=== PATIENT | female | born 1970 | race Caucasian/White ===

== ENCOUNTER 2016-12-19 13:58 | Emergency (ER) | payer OTHER ==
--- NOTE | 2016-12-19 16:05 | ED ORDER SUMMARY ---
..... Patient: MARGA VITALE OrderSheet [facility] VisitID: [id number] [address] [place] [address] 46y, F Registration Date/Time: 12/19/2016 ORDER SHEET Weight: 83.9 kg (stated) Allergies: Ambien, Lyrica, Neurontin GENERAL ORDERS: CT Abd/Pel w Cont (No) (pending) Urgent (14:35 12/19/2016 HBivens A.R.N.P.) (14:36 EHassan R.N.) CBC w Diff Urgent (14:35 12/19/2016 HBivens A.R.N.P.) (14:36 EHassan R.N.) CMP Urgent (14:35 12/19/2016 HBivens A.R.N.P.) (14:36 EHassan R.N.) UA-Culture if indicated Urgent (14:35 12/19/2016 HBivens A.R.N.P.) (14:36 EHassan R.N.) Amylase Urgent (14:35 12/19/2016 HBivens A.R.N.P.) (14:36 EHassan R.N.) Lipase Urgent (14:35 12/19/2016 HBivens A.R.N.P.) (14:36 EHassan R.N.) Serum Quantitative Urgent (14:36 12/19/2016 HBivens A.R.N.P.) (14:41 NHouse ER Tech1) MEDICATION ORDERS: Hydrocodone-APAP PO 5/325 mg (NOW, HIGH ALERT MEDICATION) (16:04 12/19/2016 HBivens A.R.N.P.) (16:10 EHassan R.N.) IV FLUIDS: IV Saline Lock (14:35 12/19/2016 HBivens A.R.N.P.) (14:44 EHassan R.N.) Toradol IV 30 mg (NOW) (14:49 12/19/2016 HBivens A.R.N.P.) (14:54 EHassan R.N.) Zofran IV 4 mg (NOW) (14:49 12/19/2016 Mona Freedman.R.N.PLorenzo) (14:55 Jose Elias Perez) ORDER SHEET NOTES: [Electronically signed by Hoda Cortez R.N. (16:36 12/19/2016)] [Electronically signed by Hoda Cortez R.N. (16:37 12/19/2016)] [Electronically signed by Rekha DuboisRLorenzoNLorenzoPLorenzo (16:57 12/19/2016)] [Electronically locked/signed by Hoda Cortez R.N. (16:36 12/19/2016)]
--- NOTE | 2016-12-19 16:05 | ED ORDER SUMMARY ---
..... Patient: MARGA VITALE OrderSheet [facility] VisitID: [id number] [address] [place] [address] 46y, F Registration Date/Time: 12/19/2016 ORDER SHEET Weight: 83.9 kg (stated) Allergies: Ambien, Lyrica, Neurontin GENERAL ORDERS: CT Abd/Pel w Cont (No) (pending) Urgent (14:35 12/19/2016 HBivens A.R.N.P.) (14:36 EHassan R.N.) CBC w Diff Urgent (14:35 12/19/2016 HBivens A.R.N.P.) (14:36 EHassan R.N.) CMP Urgent (14:35 12/19/2016 HBivens A.R.N.P.) (14:36 EHassan R.N.) UA-Culture if indicated Urgent (14:35 12/19/2016 HBivens A.R.N.P.) (14:36 EHassan R.N.) Amylase Urgent (14:35 12/19/2016 HBivens A.R.N.P.) (14:36 EHassan R.N.) Lipase Urgent (14:35 12/19/2016 HBivens A.R.N.P.) (14:36 EHassan R.N.) Serum Quantitative Urgent (14:36 12/19/2016 HBivens A.R.N.P.) (14:41 NHouse ER Tech1) MEDICATION ORDERS: Hydrocodone-APAP PO 5/325 mg (NOW, HIGH ALERT MEDICATION) (16:04 12/19/2016 HBivens A.R.N.P.) (16:10 EHassan R.N.) IV FLUIDS: IV Saline Lock (14:35 12/19/2016 HBivens A.R.N.P.) (14:44 EHassan R.N.) Toradol IV 30 mg (NOW) (14:49 12/19/2016 HBivens A.R.N.P.) (14:54 EHassan R.N.) Zofran IV 4 mg (NOW) (14:49 12/19/2016 Mona Freedman.R.N.PLorenzo) (14:55 Jose Elias Perez) ORDER SHEET NOTES: [Electronically signed by Hoda Cortez R.N. (16:36 12/19/2016)] [Electronically signed by Hoda Cortez R.N. (16:37 12/19/2016)] [Electronically signed by Rekha DuboisRLorenzoNLorenzoPLorenzo (16:57 12/19/2016)] [Electronically locked/signed by Hoda Cortez R.N. (16:36 12/19/2016)]
--- NOTE | 2016-12-19 16:05 | ED CLINICAL REPORT ---
Clinical Report - Physicians/Mid Levels [facility] [address] [place] [address] 12/19/2016 13:59 Patient: MARGA VITALE Time Seen: 14:07; initial patient contact, initial documentation, patient care assumed. Arrived- By private vehicle. Historian- patient. HISTORY OF PRESENT ILLNESS Chief Complaint: ABDOMINAL PAIN. At its maximum, severity described as severe. When seen in the E.D., severity described as severe. Modifying factors- worsened by movement. Not relieved by anything. This started yesterday and is still present. It was abrupt in onset and has been constant. It is described as "pain", sharp and stabbing and it is described as located in the left lower quadrant. The patient has had nausea. No loss of appetite, vomiting or diarrhea. No recent travel. Similar symptoms previously: None. Recent medical care: Not recently seen/assessed. REVIEW OF SYSTEMS No constipation, black stools, hematemesis, difficulty with urination or pain with urination. No urinary frequency, bloody stools, fever, chest pain or difficulty breathing. Denies current . All systems otherwise negative, except as recorded above. PAST HISTORY See nurses notes. PROBLEMS: TIA - Transient Ischemic Attack. Arrhythmia. Sleep Apnea. UTI - Urinary Tract Infection. Immunizations. Narcolepsy. Tetanus Status. Skin Avulsion. Cerebral Palsy. LNMP - Last Normal Menstrual Period. IBS. Fatigue. Tremor. Thyroid Disease. Palpitations. Fibromyalgia. --14:16 Hoda Cortez RLorenzoN. ADDITIONAL SURGERIES: Cholecystectomy. Dental Surgery. Fx right foot. Left shoulder . --14:16 Hoda Cortez RSumit. SOCIAL HISTORY Never smoker. No alcohol use or drug use. No recent travel. Is a local resident. FAMILY HISTORY Negative. ADDITIONAL NOTES The nursing notes have been reviewed with agreement regarding the chief complaint, HPI, ROS, PMH and patient medications and allergies. PHYSICAL EXAM Vital Signs: 12/19/2016 14:08 BP: 117/72. HR: 72. RR: 18. O2 saturation: 100%. Temp: 98.1 F. Pain level now: 10/10. Have been reviewed as normal and appear to be correct. Appearance: Alert. Oriented X3. No acute distress. Eyes: Pupils equal, round and reactive to light. Eyes normal inspection. Neck: Normal inspection. Neck supple. CVS: Normal heart rate and rhythm. Heart sounds normal. Pulses normal. Respiratory: No respiratory distress. Breath sounds normal. Chest nontender. Abdomen: Soft. Moderate tenderness in the left lower quadrant. No guarding, rebound tenderness or Hernandez's, obturator or psoas sign present. Bowel sounds normal. No organomegaly. No mass. Tenderness present. Back: Normal inspection. Skin: Skin warm and dry. Normal skin color. No rash. Normal skin turgor. Extremities: Extremities exhibit normal ROM. No lower extremity edema. Neuro: Oriented X 3. No motor deficit. No sensory deficit. LABS, X-RAYS, AND EKG Abdominal CT: . The study was interpreted by the radiologist and discussed with the radiologist. Interpretation time: 1555. Laboratory Tests: UA-Culture if indicated: (FLORENTIN: 12/19/2016 14:30) ( [facility] [place] 15:11) Final results Test Result Flag Units (Reference) URINE COLOR YELLOW URINE APPEARANCE CLEAR URINE GLUCOSE NEGATIVE (NEGATIVE) URINE BILIRUBIN NEGATIVE (NEGATIVE) URINE KETONE NEGATIVE (NEGATIVE) URINE SPECIFIC GRAVITY >= 1.030 (1.010-1.030) URINE PH 5.5 (5.0-8.0) URINE PROTEIN NEGATIVE (NEGATIVE) URINE UROBILINOGEN 0.2 EU/dL (0.2-1.0) URINE NITRITE NEGATIVE (NEGATIVE) URINE BLOOD NEGATIVE (NEGATIVE) URINE LEUK ESTERASE TRACE (NEGATIVE) URINE RBC NONE SEEN rbc/hpf (0-1) URINE WBC 5-10 wbc/hpf (0-1) URINE EPITHELIAL CELLS 3-5 EPI/hpf (0-5) URINE BACTERIA FEW (1+) (NONE SEEN) URINE COMMENT CULTURE INDICATED 2+ MUCUSURINE CULTURES ARE SET-UP BASED ON THE FOLLOWING CRITERIA:POSITIVE NITRITEPOSITIVE LEUKOCYTE ESTERASEGREATER THAN 10 WHITE BLOOD CELLSMODERATE (2+) OR GREATER BACTERIA CBC w Diff: (FLORENTIN: 12/19/2016 14:30) ( [facility] [place] 14:57) Final results Test Result Flag Units (Reference) WHITE BLOOD COUNT 7.5 K/uL (4.5-11.5) RED BLOOD COUNT 4.89 M/uL (4.00-5.20) HEMOGLOBIN 13.8 gm/dL (12.0-16.0) HEMATOCRIT 41.7 % (36.0-46.0) MEAN CELL VOLUME 85 fL (80-100) MEAN CORPUSCULAR HGB 28 pg (26-34) MEAN CORPUSCULAR HGB CONC 33 g/dL (31-37) RED CELL DISTRIBUTION WIDTH 14.4 % (11.6-14.8) PLATELET COUNT 238 K/uL (150-400) NEUTROPHIL % 61.3 % (50-75) LYMPH % 29.3 % (25-40) MONO % 6.1 % (3-14) EOSINOPHIL % 2.6 % (0-4) BASOPHIL % 0.7 % (0-2) Serum Quantitative: (FLORENTIN: 12/19/2016 14:30) ( [facility] [place] 12/19/2016 15:20) Final results Test Result Flag Units (Reference) BETA HCG, QUANTITATIVE 2 mIU/mL REFERENCE RANGE:Adult Males: <2 mIU/mLNon- Females: <6 mIU/mL Females:Approximate Approximate hCGGestational Age Range (mIU/mL) 0-1 week 0-501-2 weeks 40-3002-3 weeks 100-99766-6 weeks 500-67371-5 months 5,000-200,0002-3 months 10,000-100,0002nd trimester 3,000-50,0003rd trimester 1,000-50,000 CMP: (FLORENTIN: 12/19/2016 14:30) ( [facility] [place] 12/19/2016 15:07) Final results Test Result Flag Units (Reference) GLUCOSE 98 mg/dL (70-110) BUN 4 L mg/dL (7-18) CREATININE 0.8 mg/dL (0.6-1.3) Estimated GFR >60 mL/min Estimated GFR- >60 mL/min Note: Persistent reduction over 3 months in eGFR<60 mL/min/1.73 m2 defines CKD. Patients with eGFR values>=60 mL/min/1.73 m2 may also have CKD if evidence ofpersistent proteinuria. Additional information may be foundat www.kidney.org. SODIUM 139 mmol/L (136-145) POTASSIUM 3.0 L mmol/L (3.5-5.1) CHLORIDE 102 mmol/L (98-107) CARBON DIOXIDE 31 mmol/L (21-32) CALCIUM 8.8 mg/dL (8.5-10.1) TOTAL PROTEIN 7.7 g/dL (6.4-8.2) ALBUMIN 3.4 g/dL (3.3-5.0) BILIRUBIN, TOTAL 0.6 mg/dL (0.0-1.0) ALKALINE PHOSPHATASE 74 U/L (46-116) AST (SGOT) 15 U/L (15-37) ALT (SGPT) 20 U/L (12-78) LIPASE 94 U/L (73-393) AMYLASE 21 L U/L (25-115) . PROGRESS AND PROCEDURES Course of Care: 14:30 12/19/16. pt has kris for consistent tramadol rx, last rx 12/12 #112, see report for full details. Patient counseled in person regarding the patient's stable condition, test results and diagnosis. 15:59. Differential Diagnosis: I considered gastritis, peptic ulcer disease, gastroesophageal reflux disease, mesenteric lymphadenitis, colon cancer, intraabdominal abscess, hernia, urinary tract infection, ureterolithiasis, ovarian cyst, ovarian torsion, , ectopic , pelvic inflammatory disease, pelvic abscess, endometriosis and viral syndrome as a possible cause of abdominal pain in this patient. This is a partial list of diagnoses considered. Above considerations are based on history, physical exam, laboratory data and other information. Differential diagnosis was discussed with patient. Disposition: Discharged home in good and improved condition (16:05). Condition: good and stable. CLINICAL IMPRESSION Acute left lower quadrant abdominal pain of undetermined cause. INSTRUCTIONS Warnings: GENERAL WARNINGS: Return or contact your physician immediately if your condition worsens or changes unexpectedly, if not improving as expected, or if other problems arise. SPECIFICALLY, return if you develop pain in the abdomen, pelvis, back or shoulder, fever, vomiting, the inability to keep fluids down, blood in vomitus, blood in diarrhea, fainting, lightheadedness or vaginal bleeding. Prescription Medications: Zofran 4 mg: Take 1 orally every six hours as needed for nausea/vomiting. Dispense ten (10). No refills. Substitution is permissible. [place] 5 mg / 325 mg tablets: take 1 orally every 6 hours as needed for pain. Dispense five (5). No refill. Follow-up: Follow up with your doctor in about two days even if well. Call for an appointment. Summary of care provided to patient. Understanding of the discharge instructions verbalized by patient. (Electronically signed by Rekha Dubois A.R.N.P. 12/19/2016 16:57)
--- NOTE | 2016-12-19 16:05 | ED CLINICAL REPORT ---
Clinical Report - Physicians/Mid Levels [facility] [address] [place] [address] 12/19/2016 13:59 Patient: MARGA VITALE Time Seen: 14:07; initial patient contact, initial documentation, patient care assumed. Arrived- By private vehicle. Historian- patient. HISTORY OF PRESENT ILLNESS Chief Complaint: ABDOMINAL PAIN. At its maximum, severity described as severe. When seen in the E.D., severity described as severe. Modifying factors- worsened by movement. Not relieved by anything. This started yesterday and is still present. It was abrupt in onset and has been constant. It is described as "pain", sharp and stabbing and it is described as located in the left lower quadrant. The patient has had nausea. No loss of appetite, vomiting or diarrhea. No recent travel. Similar symptoms previously: None. Recent medical care: Not recently seen/assessed. REVIEW OF SYSTEMS No constipation, black stools, hematemesis, difficulty with urination or pain with urination. No urinary frequency, bloody stools, fever, chest pain or difficulty breathing. Denies current . All systems otherwise negative, except as recorded above. PAST HISTORY See nurses notes. PROBLEMS: TIA - Transient Ischemic Attack. Arrhythmia. Sleep Apnea. UTI - Urinary Tract Infection. Immunizations. Narcolepsy. Tetanus Status. Skin Avulsion. Cerebral Palsy. LNMP - Last Normal Menstrual Period. IBS. Fatigue. Tremor. Thyroid Disease. Palpitations. Fibromyalgia. --14:16 Hoda Cortez RLorenzoN. ADDITIONAL SURGERIES: Cholecystectomy. Dental Surgery. Fx right foot. Left shoulder . --14:16 Hoda Cortez RSumit. SOCIAL HISTORY Never smoker. No alcohol use or drug use. No recent travel. Is a local resident. FAMILY HISTORY Negative. ADDITIONAL NOTES The nursing notes have been reviewed with agreement regarding the chief complaint, HPI, ROS, PMH and patient medications and allergies. PHYSICAL EXAM Vital Signs: 12/19/2016 14:08 BP: 117/72. HR: 72. RR: 18. O2 saturation: 100%. Temp: 98.1 F. Pain level now: 10/10. Have been reviewed as normal and appear to be correct. Appearance: Alert. Oriented X3. No acute distress. Eyes: Pupils equal, round and reactive to light. Eyes normal inspection. Neck: Normal inspection. Neck supple. CVS: Normal heart rate and rhythm. Heart sounds normal. Pulses normal. Respiratory: No respiratory distress. Breath sounds normal. Chest nontender. Abdomen: Soft. Moderate tenderness in the left lower quadrant. No guarding, rebound tenderness or Hernandez's, obturator or psoas sign present. Bowel sounds normal. No organomegaly. No mass. Tenderness present. Back: Normal inspection. Skin: Skin warm and dry. Normal skin color. No rash. Normal skin turgor. Extremities: Extremities exhibit normal ROM. No lower extremity edema. Neuro: Oriented X 3. No motor deficit. No sensory deficit. LABS, X-RAYS, AND EKG Abdominal CT: . The study was interpreted by the radiologist and discussed with the radiologist. Interpretation time: 1555. Laboratory Tests: UA-Culture if indicated: (FLORENTIN: 12/19/2016 14:30) ( [facility] [place] 12/19/2016 15:11) Final results Test Result Flag Units (Reference) URINE COLOR YELLOW URINE APPEARANCE CLEAR URINE GLUCOSE NEGATIVE (NEGATIVE) URINE BILIRUBIN NEGATIVE (NEGATIVE) URINE KETONE NEGATIVE (NEGATIVE) URINE SPECIFIC GRAVITY >= 1.030 (1.010-1.030) URINE PH 5.5 (5.0-8.0) URINE PROTEIN NEGATIVE (NEGATIVE) URINE UROBILINOGEN 0.2 EU/dL (0.2-1.0) URINE NITRITE NEGATIVE (NEGATIVE) URINE BLOOD NEGATIVE (NEGATIVE) URINE LEUK ESTERASE TRACE (NEGATIVE) URINE RBC NONE SEEN rbc/hpf (0-1) URINE WBC 5-10 wbc/hpf (0-1) URINE EPITHELIAL CELLS 3-5 EPI/hpf (0-5) URINE BACTERIA FEW (1+) (NONE SEEN) URINE COMMENT CULTURE INDICATED 2+ MUCUSURINE CULTURES ARE SET-UP BASED ON THE FOLLOWING CRITERIA:POSITIVE NITRITEPOSITIVE LEUKOCYTE ESTERASEGREATER THAN 10 WHITE BLOOD CELLSMODERATE (2+) OR GREATER BACTERIA CBC w Diff: (FLORENTIN: 12/19/2016 14:30) ( [facility] [place] [place] 14:57) Final results Test Result Flag Units (Reference) WHITE BLOOD COUNT 7.5 K/uL (4.5-11.5) RED BLOOD COUNT 4.89 M/uL (4.00-5.20) HEMOGLOBIN 13.8 gm/dL (12.0-16.0) HEMATOCRIT 41.7 % (36.0-46.0) MEAN CELL VOLUME 85 fL (80-100) MEAN CORPUSCULAR HGB 28 pg (26-34) MEAN CORPUSCULAR HGB CONC 33 g/dL (31-37) RED CELL DISTRIBUTION WIDTH 14.4 % (11.6-14.8) PLATELET COUNT 238 K/uL (150-400) NEUTROPHIL % 61.3 % (50-75) LYMPH % 29.3 % (25-40) MONO % 6.1 % (3-14) EOSINOPHIL % 2.6 % (0-4) BASOPHIL % 0.7 % (0-2) Serum Quantitative: (FLORENTIN: 12/19/2016 14:30) ( [facility] [place] 12/19/2016 15:20) Final results Test Result Flag Units (Reference) BETA HCG, QUANTITATIVE 2 mIU/mL REFERENCE RANGE:Adult Males: <2 mIU/mLNon- Females: <6 mIU/mL Females:Approximate Approximate hCGGestational Age Range (mIU/mL) 0-1 week 0-501-2 weeks 40-3002-3 weeks 100-95160-5 weeks 500-42576-9 months 5,000-200,0002-3 months 10,000-100,0002nd trimester 3,000-50,0003rd trimester 1,000-50,000 CMP: (FLORENTIN: 12/19/2016 14:30) ( [facility] [place] 12/19/2016 15:07) Final results Test Result Flag Units (Reference) GLUCOSE 98 mg/dL (70-110) BUN 4 L mg/dL (7-18) CREATININE 0.8 mg/dL (0.6-1.3) Estimated GFR >60 mL/min Estimated GFR- >60 mL/min Note: Persistent reduction over 3 months in eGFR<60 mL/min/1.73 m2 defines CKD. Patients with eGFR values>=60 mL/min/1.73 m2 may also have CKD if evidence ofpersistent proteinuria. Additional information may be foundat www.kidney.org. SODIUM 139 mmol/L (136-145) POTASSIUM 3.0 L mmol/L (3.5-5.1) CHLORIDE 102 mmol/L (98-107) CARBON DIOXIDE 31 mmol/L (21-32) CALCIUM 8.8 mg/dL (8.5-10.1) TOTAL PROTEIN 7.7 g/dL (6.4-8.2) ALBUMIN 3.4 g/dL (3.3-5.0) BILIRUBIN, TOTAL 0.6 mg/dL (0.0-1.0) ALKALINE PHOSPHATASE 74 U/L (46-116) AST (SGOT) 15 U/L (15-37) ALT (SGPT) 20 U/L (12-78) LIPASE 94 U/L (73-393) AMYLASE 21 L U/L (25-115) . PROGRESS AND PROCEDURES Course of Care: 14:30 12/19/16. pt has kris for consistent tramadol rx, last rx 12/12 #112, see report for full details. Patient counseled in person regarding the patient's stable condition, test results and diagnosis. 15:59. Differential Diagnosis: I considered gastritis, peptic ulcer disease, gastroesophageal reflux disease, mesenteric lymphadenitis, colon cancer, intraabdominal abscess, hernia, urinary tract infection, ureterolithiasis, ovarian cyst, ovarian torsion, , ectopic , pelvic inflammatory disease, pelvic abscess, endometriosis and viral syndrome as a possible cause of abdominal pain in this patient. This is a partial list of diagnoses considered. Above considerations are based on history, physical exam, laboratory data and other information. Differential diagnosis was discussed with patient. Disposition: Discharged home in good and improved condition (16:05). Condition: good and stable. CLINICAL IMPRESSION Acute left lower quadrant abdominal pain of undetermined cause. INSTRUCTIONS Warnings: GENERAL WARNINGS: Return or contact your physician immediately if your condition worsens or changes unexpectedly, if not improving as expected, or if other problems arise. SPECIFICALLY, return if you develop pain in the abdomen, pelvis, back or shoulder, fever, vomiting, the inability to keep fluids down, blood in vomitus, blood in diarrhea, fainting, lightheadedness or vaginal bleeding. Prescription Medications: Zofran 4 mg: Take 1 orally every six hours as needed for nausea/vomiting. Dispense ten (10). No refills. Substitution is permissible. [place] 5 mg / 325 mg tablets: take 1 orally every 6 hours as needed for pain. Dispense five (5). No refill. Follow-up: Follow up with your doctor in about two days even if well. Call for an appointment. Summary of care provided to patient. Understanding of the discharge instructions verbalized by patient. (Electronically signed by Rekha Dubois A.R.N.P. 12/19/2016 16:57)
--- NOTE | 2016-12-19 16:05 | ED NURSING NOTES ---
Clinical Report - Nurses [facility] [address] [place] [address] 12/19/2016 13:59 Patient: MARGA VITALE TRIAGE Triage time 1409 PM. Acuity: LEVEL 3. Chief Complaint: ABDOMINAL PAIN and NAUSEA. Alert. No acute distress. SEPSIS SCREEN: Sepsis Screen. Negative (no infection suspected/documented). RAHEEL COMA SCORE: Raheel Coma Scale: 15- eyes open spontaneously (4); best verbal response- oriented x 4 (5); best motor response- obeys commands (6). --14:19 Hoda Cortez R.N. 14:08 12/19/16. BP: 117/72 (regular adult cuff) taken on the left arm, via an automated monitor, while lying. HR: 72. RR: 18. O2 saturation: 100% on room air. Temp: 98.1 F. Pain level now: 08/14. --14:19 Hoda Cortez R.N. Weight: 83.9 kg stated. Height/Length: 68 inches Per Patient. BMI: 28.1. --14:08 Hoda Cortez R.N. Medications Levothyroxine Sodium Oral 100 mcg, daily. TraZODone HCl Oral 100 mg, at bedtime. Vitamin B 12 Oral. Vitamins. --14:11 Hoda Cortez R.N. Effient Oral. --14:11 Hoda Cortez R.N. Oxybutynin Chloride ER Oral. --14:11 Hoda Cortez R.N. Allergies Ambien. (sleep walking) --14:11 Hoda Cortez R.N. Lyrica. --14:11 Hoda Cortez R.N. Neurontin. --14:13 Hoda Cortez R.N. Medication/allergy information source: the patient. --14:19 Hoda Cortez R.N. History Historian: patient. Primary physician (Dr. James). ( Pt states having severe LLQ pain since yesterday morning with nauseous/ unsure of having fevers, does admit to chills and body aches/no trouble urinating/vomiting/diarrhea). This started yesterday. She has had nausea and abdominal pain. No vomiting, diarrhea or fever. Last oral intake by patient was (1 hour ago some pop). 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 PAST MEDICAL HX: The patient is post-menopausal. SOCIAL HX: Never smoker. No alcohol use or drug use. No recent travel. No infectious disease exposure. No known contact with a sick individual. ABUSE ASSESSMENT: No report of abuse. SELF HARM ASSESSMENT: A self harm assessment was performed. The patient answered "no" to the question "Do you have thoughts of harming or killing yourself?" and "Have you recently had thoughts about harming or killing others?". FALL RISK ASSESSMENT: Fall risk assessment completed. No fall risk identified. NUTRITIONAL RISK ASSESSMENT: The nutritional risk assessment revealed no deficiencies. FUNCTIONAL ASSESSMENT: Functional assessment: no impairments noted. LEARNING NEEDS ASSESSMENT: The learning needs assessment revealed no barriers. SKIN INTEGRITY ASSESSMENT: Skin integrity risk assessment completed. No skin integrity risk identified. --14:19 Hoda Cortez R.N. ( Pt does admit to frequent UTI's "feels different" foul odor, and frequency). --14:21 Hoda Cortez R.N. PROBLEMS: TIA - Transient Ischemic Attack. Arrhythmia. Sleep Apnea. UTI - Urinary Tract Infection. Immunizations. Narcolepsy. Tetanus Status. Skin Avulsion. Cerebral Palsy. LNMP - Last Normal Menstrual Period. IBS. Fatigue. Tremor. Thyroid Disease. Palpitations. Fibromyalgia. --14:16 Hoda Cortez R.N. ADDITIONAL SURGERIES: Cholecystectomy. Dental Surgery. Fx right foot. Left shoulder . --14:16 Hoda Cortez R.N. Interventions ID band on patient. --14:19 Hoda Cortez R.N. PHYSICAL ASSESSMENT Ambulatory to room. GENERAL / NEURO / PSYCH: Alert. Oriented X 4. Appears in pain. HEENT: Mucous membranes are pink. RESPIRATORY: Respirations not labored. Breath sounds within normal limits. CVS: Capillary refill less than 2 seconds. GI / : Abdomen soft. Abdominal tenderness in the left lower quadrant and lower abdomen. No diarrhea. No blood in the stool. SKIN: Skin is warm and dry. --14:20 Hoda Cortez R.N. NURSING PROGRESS NOTES The initial plan of care for this patient has been created This plan of care was discussed with the patient. Reassurance given. Urine collected. Two patient identifiers checked. Call light placed in reach. Side rails up x 1. Bed placed in lowest position. Brakes of bed on. --14:23 Hoda Cortez R.N. 14:44 12/19/2016 Site #1 started via IV in the right upper arm with an 20g angiocath; one attempt. Blood drawn: rainbow set. Labeled in the presence of the patient and sent to the lab. Saline lock flushed. --14:44 Hoda Cortez R.N. 14:53 12/19/2016 Zofran (Ondansetron HCl) IVP 4 mg given over 2 minute(s) via site #1. Allergies verified and confirmed 5 rights. IV patency established. IV site checked: no pain, redness, or swelling. IV flushed thoroughly pre- and post-medication administration. IVP given by RN. --14:55 Hoda Cortez R.N. 14:54 12/19/2016 Toradol IVP 30 mg given over 30 second(s) via site #1. Allergies verified and confirmed 5 rights. IV patency established. IV site checked: no pain, redness, or swelling. IV flushed thoroughly pre- and post-medication administration. IVP given by RN. --14:54 Hoda Cortez R.N. 15:30 12/19/16. BP: 116/62. HR: 73. RR: 18. O2 saturation: 97% on room air. Pain level now: 07/15. --15:32 Hoda Cortez R.N. Reassurance given. The patient has had no adverse reaction. Overall patient status is the same- she states feels the same. ( Pt awaiting CT scan, still c/o of pain 07/15, n/v resolved). GI / : The patient reports abdominal pain. Denies nausea. Call light placed in reach. Side rails up x 1. Bed placed in lowest position. Brakes of bed on. --15:32 Hoda Cortez R.N. 16:10 12/19/2016 Hydrocodone-APAP (Hydrocodone-Acetaminophen) PO 5/325 mg Tablets 1 tab given. Allergies verified, confirmed 5 rights and sedative warning given to the patient. --16:10 Hoda Cortez R.N. 16:31 12/19/2016 Hydrocodone-APAP PO Response: no adverse reaction pain is improving. --16:36 Hoda Cortez R.N. DISPOSITION / DISCHARGE 16:17 12/19/2016 Site #1 removed upon discharge. Catheter intact. Manual pressure and bandaid applied. --16:17 Hoda Cortez R.N. Condition at departure: stable. The goals identified in the patient's plan of care were met. No learning barriers present. Discharge instructions provided and reviewed with the patient. Reviewed warnings (s/s of worsening). Reviewed medication(s) side effects, precautions, dosing and course information. Prescription(s) given to the patient. Reviewed low fat diet, high fiber diet and need for increased fluid intake. Activity restrictions (rest) reviewed. Patient verbalized understanding. Written instructions provided in Salvadorean. The patient was discharged by the nurse practitioner. She was discharged home and accompanied by spouse. She left the Emergency Department ambulatory and via private vehicle. Spouse driving. FALL RISK ASSESSMENT: Fall risk assessment completed. No fall risk identified. --16:21 Hoda Cortez R.N. 16:12 12/19/16. BP: 106/56 (regular adult cuff) taken on the left arm, via an automated monitor, while lying. HR: 68. RR: 12. O2 saturation: 98%. Temp: 98.2 F (oral). Pain level now: 06/14. --16:21 Hoda Cortez R.N. Departure time: 1632 PM. --16:36 Hoda Cortez R.N. Locked/Released at 12/19/2016 16:37 by Hoda Cortez R.N.
--- NOTE | 2016-12-19 16:57 | DIAGNOSTIC IMAGING REPORT ---
PROCEDURE: CT ABD/PELVIS WITH CONTRAST CLINICAL INDICATION: Left lower quadrant pain x 2 days, initial encounter TECHNIQUE: 95 ml of Isovue 300 were injected intravenously and axial images were obtained of the entire abdomen and pelvis with sagittal and coronal reformations. COMPARISON: None. FINDINGS: ABDOMEN: Mild left basilar scarring. Normal heart size. Cholecystectomy. Liver, pancreas, spleen, adrenal glands and the kidneys are normal. Mild atherosclerosis of the aorta. Nonspecific bowel gas pattern. PELVIS: 1.5 cm atrophic left ovary with infiltration of the fat between the ovary and sigmoid colon, but the ovary and sigmoid colon are unremarkable. This may represent epiploic appendagitis. Left ovarian torsion changes are less likely. No evidence of free air or free fluid. Normal appendix. Normal bladder and uterus. Mild levoscoliosis. IMPRESSION: 1. Mild left lower quadrant inflammatory changes between the atrophic left ovary and sigmoid colon suggestive of epiploic appendagitis. Ovarian torsion is less likely. 2. Cholecystectomy 3. Results discussed with Rekha Dubois All CT scans at this facility use dose modulation, iterative reconstruction, and/or weight-based dosing when appropriate to reduce radiation dose to as low as reasonably achievable.
--- NOTE | 2016-12-19 16:58 | ED MAR SUMMARY ---
..... Medication Administration Record [facility] [address] [place] [address] Patient: MARGA VITALE Visit ID: [id number] 46y, F Weight: 83.9 kg Height/Length: 68 in BMI: 28.1 ALLERGIES: Neurontin, Lyrica, Ambien Given 14:53 12/19/2016 Hoda Cortez R.N. Medication Administered: ZOFRAN [IVP] (ONDANSETRON HCL), Dose: 4 mg IVP over 2 minute(s), Site: #1 right upper arm. Medication Ordered: Zofran IV 4 mg (NOW). Given 14:54 12/19/2016 Hoda Cortez R.N. Medication Administered: TORADOL [IVP], Dose: 30 mg IVP over 30 second(s), Site: #1 right upper arm. Medication Ordered: Toradol IV 30 mg (NOW). Given 16:10 12/19/2016 Hoda Cortez R.N. Medication Administered: HYDROCODONE-APAP [PO] (HYDROCODONE-ACETAMINOPHEN), Dose: 1 tab 5/325 mg Tablets PO. Medication Ordered: Hydrocodone-APAP PO 5/325 mg (NOW, HIGH ALERT MEDICATION).
--- NOTE | 2016-12-19 16:58 | ED MED RECONCILIATION SUMMARY ---
Patient: MARGA VITALE Medication Reconciliation Report [facility] VisitID: [id number] [address] [place] [address] 46y, F Registration Date/Time: 12/19/2016 Weight: 83.9 kg Height/Length: 68 in. BMI: 28.1 ALLERGIES: Ambien, Lyrica, Neurontin The patient's Home Medications are listed below: THE FOLLOWING MEDICATIONS NEED TO BE RECONCILED: Effient Oral Levothyroxine Sodium Oral 100 mcg, daily Oxybutynin Chloride ER Oral TraZODone HCl Oral 100 mg, at bedtime Vitamin B 12 Oral Vitamins The source(s) of the original Home Medication information: patient The following Medications were given to the patient in the Emergency Department: Toradol [IVP] IVP 30 mg, administered: 12/19/2016 2:54:00 PM Zofran [IVP] IVP 4 mg, administered: 12/19/2016 2:53:00 PM Hydrocodone-APAP [PO] PO 1 tab, administered: 12/19/2016 4:10:00 PM The following Medications were prescribed to the patient: Zofran 4 mg: Take 1 orally every six hours as needed for nausea/vomiting. Dispense ten (10). No refills. Substitution is permissible. -- Rekha Dubois, A.R.N.P. [place] 5 mg / 325 mg tablets: take 1 orally every 6 hours as needed for pain. Dispense five (5). No refill. -- Rekha Dubois, A.R.N.P.
--- NOTE | 2016-12-19 16:58 | ED MAR SUMMARY ---
..... Medication Administration Record [facility] [address] [place] [address] Patient: MARGA VITALE Visit ID: [id number] 46y, F Weight: 83.9 kg Height/Length: 68 in BMI: 28.1 ALLERGIES: Neurontin, Lyrica, Ambien Given 14:53 12/19/2016 Hoda Cortez R.N. Medication Administered: ZOFRAN [IVP] (ONDANSETRON HCL), Dose: 4 mg IVP over 2 minute(s), Site: #1 right upper arm. Medication Ordered: Zofran IV 4 mg (NOW). Given 14:54 12/19/2016 Hoda Cortez R.N. Medication Administered: TORADOL [IVP], Dose: 30 mg IVP over 30 second(s), Site: #1 right upper arm. Medication Ordered: Toradol IV 30 mg (NOW). Given 16:10 12/19/2016 Hoda Cortez R.N. Medication Administered: HYDROCODONE-APAP [PO] (HYDROCODONE-ACETAMINOPHEN), Dose: 1 tab 5/325 mg Tablets PO. Medication Ordered: Hydrocodone-APAP PO 5/325 mg (NOW, HIGH ALERT MEDICATION).
--- NOTE | 2016-12-19 16:58 | ED DISCHARGE INSTRUCTIONS ---
Patient: MARGA VITALE General Instructions [facility] VisitID: [id number] [address] [place] [address] 46y, F Registration Date/Time: 12/19/2016 Acute left lower quadrant abdominal pain of undetermined cause. INSTRUCTIONS Warnings: GENERAL WARNINGS: Return or contact your physician immediately if your condition worsens or changes unexpectedly, if not improving as expected, or if other problems arise. SPECIFICALLY, return if you develop pain in the abdomen, pelvis, back or shoulder, fever, vomiting, the inability to keep fluids down, blood in vomitus, blood in diarrhea, fainting, lightheadedness or vaginal bleeding. Prescription Medications: Zofran 4 mg: Take 1 orally every six hours as needed for nausea/vomiting. Dispense ten (10). No refills. Substitution is permissible. [place] 5 mg / 325 mg tablets: take 1 orally every 6 hours as needed for pain. Dispense five (5). No refill. Follow-up: Follow up with your doctor in about two days even if well. Call for an appointment. Summary of care provided to patient. Understanding of the discharge instructions verbalized by patient. ADDITIONAL INFORMATION Abdominal Pain, Unknown Cause (Female) The exact cause of your abdominal (stomach) pain is not certain. This does not mean that this is something to worry about, or the right tests were not done. Everyone likes to know the exact cause of the problem, but sometimes with abdominal pain, there is no clear-cut cause, and this could be a good thing. The good news is that your symptoms can be treated, and you will feel better. Your condition does not seem serious now; however, sometimes the signs of a serious problem may take more time to appear. For this reason,it is important for you to watch for any new symptoms, problems,or worsening of your condition. Over the next few days, the abdominal pain may come and go, or be continuous. Other common symptoms can include nausea and vomiting. Sometimes it can be difficult to tell if you feel nauseous, you may just feel bad and not associate that feeling with nausea. Constipation, diarrhea, and a fever may go along with the pain. The pain may continue even if treated correctly over the following days. Depending on how things go, sometimes the cause can become clear and may require further or different treatment. Additional evaluations, medications, or tests may be needed. Home care Your health care provider may prescribe medications for pain, symptoms, or an infection. Follow the health care provider's instructions for taking these medications. General care Rest until your next exam. No strenuous activities. Try to find positions that ease discomfort. A small pillow placed on the abdomen may help relieve pain. Something warm on your abdomen (such as a heating pad) may help, but be careful not to burn yourself. Diet Do not force yourself to eat, especially if having cramps, vomiting, or diarrhea. Water is important so you do not get dehydrated. Soup may also be good. Sports drinks may also help, especially if they are not too acidic. Make sure you don't drink sugary drinks as this can make things worse. Take liquids in small amounts. Do not guzzle them. Caffeine sometimes makes the pain and cramping worse. Avoid dairy products if you have vomiting or diarrhea. Don't eat large amounts at a time. Wait a few minutes between bites. Eat a diet low in fiber (called a low-residue diet). Foods allowed include refined breads, white rice, fruit and vegetable juices without pulp, tender meats. These foods will pass more easily through the intestine. Avoid whole-grain foods, whole fruits and vegetables, meats, seeds and nuts, fried or fatty foods, dairy, alcohol and spicy foods until your symptoms go away. Follow-up care Follow up with your health care provider as instructed, or if your pain does not begin to improve in the next 24 hours. When to seek medical care Seek prompt medical care if any of the following occur: Pain gets worse or moves to the right lower abdomen New or worsening vomiting or diarrhea Swelling of the abdomen Unable to pass stool for more than three days Fever of 100.4F (38C) or higher, or as directed by your healthcare provider. Blood in vomit or bowel movements (dark red or black color) Jaundice (yellow color of eyes and skin) Weakness, dizziness Chest, arm, back, neck or jaw pain Unexpected vaginal bleeding or missed period Call 911 Call emergency services if any of the following occur: Trouble breathing Confusion Fainting or loss of consciousness Rapid heart rate Seizure Abdominal Pain,Possible Appendicitis [Repeat Exam, Female] Based on your visit today, the exact cause of your abdominal (stomach) pain is not certain. However, you do have some of the early signs of APPENDICITIS. Early in an appendix infection the symptoms can be similar to a simple "stomach ache" or "stomach flu". Therefore, the diagnosis can be hard to make. Since an appendix infection is a serious condition, it is important to know if this is the cause of your symptoms. WAITING for more time to pass and repeating the exam is the best way to find out whether you have appendicitis. Within the next 12-24 hours the cause of your stomach pain should become clear. It is important for you to watch for any new symptoms or worsening of your condition. (See below). Home Care: Rest until your next exam. No strenuous activities. Eat a diet low in fiber (called a low-residue diet). Foods allowed include refined breads, white rice, fruit and vegetable juices without pulp, tender meats. These foods will pass more easily through the intestine. Avoid whole-grain foods, whole fruits and vegetables, meats, seeds and nuts, fried or fatty foods, dairy, alcohol and spicy foods until your symptoms go away. In some cases, you may be asked not to eat or drink anything until you are re-examined. Return for another exam exactly as directed. Follow Up with your doctor or this facility as directed. Get Prompt Medical Attention if any of the following occur: Pain gets worse or moves to the right lower abdomen New or worsening vomiting or diarrhea Swelling of the abdomen Unable to pass stool for more than three days Fever of 100.4F (38C) or higher, or as directed by your healthcare provider Blood in vomit or bowel movements (dark red or black color) Weakness, dizziness or fainting Unexpected vaginal bleeding Ondansetron Oral disintegrating tablet What is this medicine? ONDANSETRON (on VIV se junior) is used to treat nausea and vomiting caused by chemotherapy. It is also used to prevent or treat nausea and vomiting after surgery. How should I use this medicine? These tablets are made to dissolve in the mouth. Do not try to push the tablet through the foil backing. With dry hands, peel away the foil backing and gently remove the tablet. Place the tablet in the mouth and allow it to dissolve, then swallow. While you may take these tablets with water, it is not necessary to do so. Talk to your lapidary apprentice regarding the use of this medicine in children. Special care may be needed. What side effects may I notice from receiving this medicine? Side effects that you should report to your doctor or health workforce investment act career manager as soon as possible: allergic reactions like skin rash, itching or hives, swelling of the face, lips, or tongue breathing problems dizziness fast or irregular heartbeat feeling faint or lightheaded, falls fever and chills swelling of the hands and feet tightness in the chest Side effects that usually do not require medical attention (report to your doctor or health workforce investment act career manager if they continue or are bothersome): constipation or diarrhea headache What may interact with this medicine? Do not take this medicine with any of the following medications: -apomorphine -cisapride -dofetilide -dronedarone -pimozide -thioridazine -ziprasidone This medicine may also interact with the following medications: -carbamazepine -phenytoin -rifampicin -tramadol -other medicines that prolong the QT interval (cause an abnormal heart rhythm) What if I miss a dose? If you miss a dose, take it as soon as you can. If it is almost time for your next dose, take only that dose. Do not take double or extra doses. Where should I keep my medicine? Keep out of the reach of children. Store between 2 and 30 degrees C (36 and 86 degrees F). Throw away any unused medicine after the expiration date. What should I tell my health care provider before I take this medicine? They need to know if you have any of these conditions: heart disease history of irregular heartbeat liver disease low levels of magnesium or potassium in the blood an unusual or allergic reaction to ondansetron, granisetron, other medicines, foods, dyes, or preservatives or trying to get breast-feeding What should I watch for while using this medicine? Check with your doctor or health workforce investment act career manager as soon as you can if you have any sign of an allergic reaction. Hydrocodone Bitartrate, Acetaminophen Oral tablet What is this medicine? ACETAMINOPHEN; HYDROCODONE (a set a ERIKA vadim fen; marquise droe KOE done) is a pain reliever. It is used to treat mild to moderate pain. How should I use this medicine? Take this medicine by mouth. Swallow it with a full glass of water. Follow the directions on the prescription label. If the medicine upsets your stomach, take the medicine with food or milk. Do not take more than you are told to take. Talk to your lapidary apprentice regarding the use of this medicine in children. This medicine is not approved for use in children. What side effects may I notice from receiving this medicine? Side effects that you should report to your doctor or health workforce investment act career manager as soon as possible: allergic reactions like skin rash, itching or hives, swelling of the face, lips, or tongue breathing problems confusion feeling faint or lightheaded, falls stomach pain yellowing of the eyes or skin Side effects that usually do not require medical attention (report to your doctor or health workforce investment act career manager if they continue or are bothersome): nausea, vomiting stomach upset What may interact with this medicine? alcohol antihistamines isoniazid medicines for depression, anxiety, or psychotic disturbances medicines for sleep muscle relaxants naltrexone narcotic medicines (opiates) for pain phenobarbital ritonavir tramadol What if I miss a dose? If you miss a dose, take it as soon as you can. If it is almost time for your next dose, take only that dose. Do not take double or extra doses. Where should I keep my medicine? Keep out of the reach of children. This medicine can be abused. Keep your medicine in a safe place to protect it from theft. Do not share this medicine with anyone. Selling or giving away this medicine is dangerous and against the law. Store at room temperature between 15 and 30 degrees C (59 and 86 degrees F). Protect from light. Keep container tightly closed. Throw away any unused medicine after the expiration date. Discard unused medicine and used packaging carefully. Pets and children can be harmed if they find used or lost packages. What should I tell my health care provider before I take this medicine? They need to know if you have any of these conditions: brain tumor Crohn's disease, inflammatory bowel disease, or ulcerative colitis drink more than 3 alcohol-containing drinks per day drug abuse or addiction head injury heart or circulation problems kidney disease or problems going to the bathroom liver disease lung disease, asthma, or breathing problems an unusual or allergic reaction to acetaminophen, hydrocodone, other opioid analgesics, other medicines, foods, dyes, or preservatives or trying to get breast-feeding What should I watch for while using this medicine? Tell your doctor or health workforce investment act career manager if your pain does not go away, if it gets worse, or if you have new or a different type of pain. You may develop tolerance to the medicine. Tolerance means that you will need a higher dose of the medicine for pain relief. Tolerance is normal and is expected if you take the medicine for a long time. Do not suddenly stop taking your medicine because you may develop a severe reaction. Your body becomes used to the medicine. This does NOT mean you are addicted. Addiction is a behavior related to getting and using a drug for a non-medical reason. If you have pain, you have a medical reason to take pain medicine. Your doctor will tell you how much medicine to take. If your doctor wants you to stop the medicine, the dose will be slowly lowered over time to avoid any side effects. You may get drowsy or dizzy when you first start taking the medicine or change doses. Do not drive, use machinery, or do anything that may be dangerous until you know how the medicine affects you. Stand or sit up slowly. There are different types of narcotic medicines (opiates) for pain. If you take more than one type at the same time, you may have more side effects. Give your health care provider a list of all medicines you use. Your doctor will tell you how much medicine to take. Do not take more medicine than directed. Call emergency for help if you have problems breathing. The medicine will cause constipation. Try to have a bowel movement at least every 2 to 3 days. If you do not have a bowel movement for 3 days, call your doctor or health workforce investment act career manager. Too much acetaminophen can be very dangerous. Do not take Tylenol (acetaminophen) or medicines that contain acetaminophen with this medicine. Many non-prescription medicines contain acetaminophen. Always read the labels carefully. You have been given the following additional information: Abdominal Pain, Unknown Cause, (Female) Abdominal Pain, Possible Appendicitis (Female) Ondansetron Oral disintegrating tablet Hydrocodone Bitartrate, Acetaminophen Oral tablet (Electronically signed by Rekha Dubois A.R.N.P. 12/19/2016 16:57)
--- NOTE | 2016-12-19 16:58 | ED MED RECONCILIATION SUMMARY ---
Patient: MARGA VITALE Medication Reconciliation Report [facility] VisitID: [id number] [address] [place] [address] 46y, F Registration Date/Time: 12/19/2016 Weight: 83.9 kg Height/Length: 68 in. BMI: 28.1 ALLERGIES: Ambien, Lyrica, Neurontin The patient's Home Medications are listed below: THE FOLLOWING MEDICATIONS NEED TO BE RECONCILED: Effient Oral Levothyroxine Sodium Oral 100 mcg, daily Oxybutynin Chloride ER Oral TraZODone HCl Oral 100 mg, at bedtime Vitamin B 12 Oral Vitamins The source(s) of the original Home Medication information: patient The following Medications were given to the patient in the Emergency Department: Toradol [IVP] IVP 30 mg, administered: 12/19/2016 2:54:00 PM Zofran [IVP] IVP 4 mg, administered: 12/19/2016 2:53:00 PM Hydrocodone-APAP [PO] PO 1 tab, administered: 12/19/2016 4:10:00 PM The following Medications were prescribed to the patient: Zofran 4 mg: Take 1 orally every six hours as needed for nausea/vomiting. Dispense ten (10). No refills. Substitution is permissible. -- Rekha Dubois, A.R.N.P. [place] 5 mg / 325 mg tablets: take 1 orally every 6 hours as needed for pain. Dispense five (5). No refill. -- Rekha Dubois, A.R.N.P.
== END 2016-12-19 16:32 | disposition home or self-care (01) ==
LOC: ED SRH 13:58
DX: R10.32 Left lower quadrant pain (principal); Z88.8 Allergy status to other drugs, medicaments and biological substances
CPT/HCPCS: 90004; 90100; 90197; 90469; 92235; 92530; 95059

== ENCOUNTER 2016-12-21 15:22 | Emergency (ER) | payer OTHER ==
--- NOTE | 2016-12-21 16:57 | ED NURSING NOTES ---
Clinical Report - Nurses [facility] [address] [place] [address] 12/21/2016 15:22 Patient: MARGA VITALE TRIAGE Triage time 1537. Acuity: LEVEL 3. Chief Complaint: ABDOMINAL PAIN and NAUSEA. --15:42 Selene Carey R.N. 15:37 12/21/16. BP: 130/78. HR: 65. RR: 18 (unlabored). O2 saturation: 97% on room air. Temp: 98.6 F (oral). Pain level now: 06/14. --15:42 Selene Carey R.N. Weight: 83.9 kg stated. Height/Length: 67 inches Per Patient. BMI: 29. --15:36 Selene Carey R.N. Medications Effient Oral. Levothyroxine Sodium Oral 100 mcg, daily. Oxybutynin Chloride ER Oral. TraZODone HCl Oral 100 mg, at bedtime. Vitamin B 12 Oral. Vitamins. --15:40 Selene Carey R.N. Medication/allergy information source: the patient. --15:42 Selene Carey R.N. Allergies Ambien. (sleep walking) Lyrica. Neurontin. --15:40 Selene Carey R.N. Topiramate. --16:33 Dona Alcantar. History Arrived by private vehicle. Historian: patient. Unaccompanied. ( pt returns with lower abdominal pain. pt states she was seen here on 12/19/16. Pt advised to go home and return if symptoms worsen. Pt states she's unable to have bowel movement.). Onset. (2 days). She has had nausea and abdominal pain. 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 PAST MEDICAL HX: Last normal menstrual period- menopause. SOCIAL HX: Never smoker. No alcohol use or drug use. ABUSE ASSESSMENT: No report of abuse. FALL RISK ASSESSMENT: Fall risk assessment completed. No fall risk identified. NUTRITIONAL RISK ASSESSMENT: The nutritional risk assessment revealed no deficiencies. FUNCTIONAL ASSESSMENT: Functional assessment: no impairments noted. LEARNING NEEDS ASSESSMENT: The learning needs assessment revealed no barriers. SKIN INTEGRITY ASSESSMENT: Skin integrity risk assessment completed. No skin integrity risk identified. --15:42 Selene Carey R.N. PROBLEMS: Abdominal Pain. TIA - Transient Ischemic Attack. Arrhythmia. Sleep Apnea. UTI - Urinary Tract Infection. Immunizations. Narcolepsy. Tetanus Status. Skin Avulsion. Cerebral Palsy. LNMP - Last Normal Menstrual Period. IBS. Fatigue. Tremor. Thyroid Disease. Palpitations. Fibromyalgia. --15:41 Selene Carey R.N. ADDITIONAL SURGERIES: Cholecystectomy. Dental Surgery. Fx right foot. Left shoulder . --15:41 Selene Carey R.N. Interventions ID band on patient. --15:42 Selene Carey R.N. PHYSICAL ASSESSMENT 16:00 LLQ pain. Ambulatory to room. GENERAL / NEURO / PSYCH: Alert. Oriented X 4. Appears in pain. HEENT: Mucous membranes are pink. RESPIRATORY: Respirations not labored. GI / : Abdomen soft and nontender. SKIN: Skin is warm and dry. --17:20 Shelbie Bowens R.N. NURSING PROGRESS NOTES Patient gowned. Head of bed elevated. Two patient identifiers checked. Call light placed in reach. Side rails up x 1. Bed placed in lowest position. Brakes of bed on. Patient ready for evaluation. --15:47 Selene Carey R.N. Patient ID band checked: patient confirmed. Clean catch urine collected with return of yellow-colored urine; sample sent to lab for urinalysis. Specimen labeled in the presence of the patient. --15:48 Selene Carey R.N. PELVIC EXAM: Pelvic exam performed by RAIL MAINTENANCE WORKER. Assisted by one nurse. Preparation: pelvic tray. Procedure: speculum and bimanual exam. Status post-procedure: she was stable. Total time of assist / procedure: (5 min). --16:12 Selene Carey R.N. 16:24 12/21/2016 Site #1 started via IV in the left antecubital space with an 20g angiocath, with aseptic technique and good blood return; one attempt. Blood drawn: rainbow set. Labeled in the presence of the patient and sent to the lab. Saline lock flushed with 10 mL saline (by Selene RESENDEZ). --16:24 Keya Kumar R.N. 16:37 12/21/2016 Zofran (Ondansetron HCl) IVP 4 mg given over 1 minute(s) via site #1. Allergies verified and confirmed 5 rights. IV patency established. IV site checked: no pain, redness, or swelling. IV flushed thoroughly pre- and post-medication administration. IVP given by RN. --16:43 Dona Alcantar 16:38 12/21/2016 Toradol IVP 30 mg given over 1 minute(s) via site #1. Allergies verified and confirmed 5 rights. IV patency established. IV site checked: no pain, redness, or swelling. IV flushed thoroughly pre- and post-medication administration. IVP given by RN. --16:43 Dona Alcantar 16:44 12/21/16. ( US at bedside.). --16:44 Dona Alcantar 17:18 12/21/2016 K-DUR (Potassium Chloride Lashae ER) PO Tablets 40 meq given. Allergies verified and confirmed 5 rights. --17:23 Shelbie Bowens R.N. DISPOSITION / DISCHARGE 17:19 12/21/2016 Site #1 removed upon discharge. Catheter intact. Manual pressure and bandage applied. --17:23 Shelbie Bowens R.N. 17:23 12/21/16. BP: 121/78. HR: 67. RR: 15. O2 saturation: 97% on room air. Temp: deferred. Emmanuel-Ocasio pain scale: 4/10. --17:24 Shelbie Bowens R.N. Condition at departure: stable. No learning barriers present. Discharge instructions provided and reviewed with the patient. Reviewed medication(s) side effects, precautions, dosing and course information. Prescription(s) given to the patient. Patient verbalized understanding. Written instructions provided in Vietnamese. The patient was discharged home. She left the Emergency Department ambulatory and via private vehicle. --17:24 Shelbie Bowens R.N. Locked/Released at 12/21/2016 17:25 by Shelbie Bowens R.N.
--- NOTE | 2016-12-21 16:57 | ED CLINICAL REPORT ---
Clinical Report - Physicians/Mid Levels [facility] [address] [place] [address] 12/21/2016 15:22 Patient: MARGA VITALE Time Seen: 15:47; initial patient contact, initial documentation, patient care assumed. Arrived- By private vehicle. Historian- patient. RETURN VISIT: recently seen in this ED by me. Seen now for the same problem as before. HISTORY OF PRESENT ILLNESS Chief Complaint: ABDOMINAL PAIN. At its maximum, severity described as moderate. When seen in the E.D., severity described as moderate. Modifying factors- worsened by movement. Not relieved by anything. It is described as "pain", sharp and stabbing. No radiation. It is described as located in the pelvic area and in the left lower quadrant and left pelvis. This started about 3 days ago and is still present. It was abrupt in onset and has been constant. No loss of appetite. No additional abdominal pain. No recent travel. Similar symptoms previously: None. Recent medical care: The patient was seen recently in the emergency department and a clinic. ( txed here 12/19, given rx zofran and norco, no better, went to clinic this am, says that they didn't even examine her, told her if she was still hurting, that she would need ct). REVIEW OF SYSTEMS No difficulty with urination, pain with urination, urinary frequency, fever or chest pain. No difficulty breathing or vaginal discharge. Denies current . All systems otherwise negative, except as recorded above. PAST HISTORY See nurses notes. PAST HISTORY See nurses notes. PROBLEMS: TIA - Transient Ischemic Attack. Arrhythmia. Sleep Apnea. UTI - Urinary Tract Infection. Immunizations. Narcolepsy. Tetanus Status. Skin Avulsion. Cerebral Palsy. LNMP - Last Normal Menstrual Period. IBS. Fatigue. Tremor. Thyroid Disease. Palpitations. Fibromyalgia. --14:16 Hoda Cortez R.N. ADDITIONAL SURGERIES: Cholecystectomy. Dental Surgery. Fx right foot. Left shoulder . --14:16 Hoda Cortez R.N. SOCIAL HISTORY Never smoker. No alcohol use or drug use. No recent travel. Is a local resident. FAMILY HISTORY Negative. ADDITIONAL NOTES The nursing notes have been reviewed with agreement regarding the chief complaint, HPI, ROS, PMH and patient medications and allergies. PHYSICAL EXAM Vital Signs: 12/21/2016 15:37 BP: 130/78. HR: 65. RR: 18. O2 saturation: 97%. Temp: 98.6 F. Pain level now: 8/10. Have been reviewed as normal and appear to be correct. Appearance: Alert. Oriented X3. No acute distress. Eyes: Pupils equal, round and reactive to light. Eyes normal inspection. Neck: Normal inspection. Neck supple. CVS: Normal heart rate and rhythm. Heart sounds normal. Pulses normal. Respiratory: No respiratory distress. Breath sounds normal. Chest nontender. Abdomen: Soft. Mild tenderness in the left lower quadrant. No guarding, rebound tenderness or Hernandez's, obturator or psoas sign present. Bowel sounds normal. No organomegaly. No mass. Mildly obese. Tenderness present. Back: Normal inspection. : Normal external exam. Speculum exam normal. Bimanual exam normal. Skin: Skin warm and dry. Normal skin color. No rash. Normal skin turgor. Extremities: Extremities exhibit normal ROM. No lower extremity edema. Neuro: Oriented X 3. No motor deficit. No sensory deficit. LABS, X-RAYS, AND EKG Pelvic Sonogram: No acute disease. verbal report from [employer] Mimi. Interpretation time: 1650. Laboratory Tests: UA-Culture if indicated: (FLORENTIN: 12/21/2016 15:43) ( MsgRcvd 12/21/2016 16:15) Final results Test Result Flag Units (Reference) URINE COLOR YELLOW URINE APPEARANCE SL CLOUDY URINE GLUCOSE NEGATIVE (NEGATIVE) URINE BILIRUBIN NEGATIVE (NEGATIVE) URINE KETONE NEGATIVE (NEGATIVE) URINE SPECIFIC GRAVITY >= 1.030 (1.010-1.030) URINE PH 5.5 (5.0-8.0) URINE PROTEIN TRACE (NEGATIVE) URINE UROBILINOGEN 1.0 EU/dL (0.2-1.0) URINE NITRITE NEGATIVE (NEGATIVE) URINE BLOOD NEGATIVE (NEGATIVE) URINE LEUK ESTERASE POSITIVE (NEGATIVE) URINE RBC NONE SEEN rbc/hpf (0-1) URINE WBC 25-50 wbc/hpf (0-1) URINE EPITHELIAL CELLS 10-15 EPI/hpf (0-5) URINE BACTERIA MODERATE (2+ TO 3+) (NONE SEEN) URINE COMMENT CULTURE INDICATED URINE CULTURES ARE SET-UP BASED ON THE FOLLOWING CRITERIA:POSITIVE NITRITEPOSITIVE LEUKOCYTE ESTERASEGREATER THAN 10 WHITE BLOOD CELLSMODERATE (2+) OR GREATER BACTERIA CBC w Diff: (FLORENTIN: 12/21/2016 16:20) ( Mscvd 12/21/2016 16:34) Final results Test Result Flag Units (Reference) WHITE BLOOD COUNT 5.4 K/uL (4.5-11.5) RED BLOOD COUNT 4.49 M/uL (4.00-5.20) HEMOGLOBIN 12.6 gm/dL (12.0-16.0) HEMATOCRIT 38.1 % (36.0-46.0) MEAN CELL VOLUME 85 fL (80-100) MEAN CORPUSCULAR HGB 28 pg (26-34) MEAN CORPUSCULAR HGB CONC 33 g/dL (31-37) RED CELL DISTRIBUTION WIDTH 14.2 % (11.6-14.8) PLATELET COUNT 238 K/uL (150-400) NEUTROPHIL % 50.9 % (50-75) LYMPH % 38.4 % (25-40) MONO % 5.2 % (3-14) EOSINOPHIL % 3.9 % (0-4) BASOPHIL % 1.6 % (0-2) CMP: (FLORENTIN: 12/21/2016 16:20) ( MsgRcvd 12/21/2016 16:47) Final results Test Result Flag Units (Reference) GLUCOSE 97 mg/dL (70-110) BUN 4 L mg/dL (7-18) CREATININE 0.8 mg/dL (0.6-1.3) Estimated GFR >60 mL/min Estimated GFR- >60 mL/min Note: Persistent reduction over 3 months in eGFR<60 mL/min/1.73 m2 defines CKD. Patients with eGFR values>=60 mL/min/1.73 m2 may also have CKD if evidence ofpersistent proteinuria. Additional information may be foundat [email or web address].org. SODIUM 142 mmol/L (136-145) POTASSIUM 3.2 L mmol/L (3.5-5.1) CHLORIDE 104 mmol/L (98-107) CARBON DIOXIDE 31 mmol/L (21-32) CALCIUM 8.5 mg/dL (8.5-10.1) TOTAL PROTEIN 7.1 g/dL (6.4-8.2) ALBUMIN 3.1 L g/dL (3.3-5.0) BILIRUBIN, TOTAL 0.4 mg/dL (0.0-1.0) ALKALINE PHOSPHATASE 67 U/L (46-116) AST (SGOT) 16 U/L (15-37) ALT (SGPT) 15 U/L (12-78) . PROGRESS AND PROCEDURES Course of Care: pt has kris for frequent tramadol rx er chart from 12/19 reviewed. Patient counseled in person regarding the patient's stable condition, test results and diagnosis. 16:57. Differential Diagnosis: I considered gastritis, peptic ulcer disease, gastroesophageal reflux disease, diverticulitis, colon cancer, obstipation, hernia, urinary tract infection, ureterolithiasis, ovarian cyst, ovarian torsion, , ectopic , pelvic inflammatory disease, pelvic abscess, endometriosis and viral syndrome as a possible cause of abdominal pain in this patient. This is a partial list of diagnoses considered. Above considerations are based on history, physical exam, laboratory data and other information. Differential diagnosis was discussed with patient. Disposition: Discharged home in good and improved condition (16:57). Condition: good and stable. CLINICAL IMPRESSION Acute urinary tract infection. No cystitis, pyelonephritis or hematuria. Not associated with indwelling catheter. Acute left lower quadrant abdominal pain of undetermined cause. INSTRUCTIONS Warnings: GENERAL WARNINGS: Return or contact your physician immediately if your condition worsens or changes unexpectedly, if not improving as expected, or if other problems arise. SPECIFICALLY, return if you develop fever, the inability to keep fluids down, blood in vomitus, blood in diarrhea, fainting or lightheadedness. Prescription Medications: Zofran 4 mg: Take 1 orally every six hours as needed for nausea/vomiting. Dispense ten (10). No refills. Substitution is permissible. Macrobid 100 mg: Take 1 capsule orally every 12 hours for 7 days. No refills. Substitution is permissible. Toradol 10 mg tablets: Take 1 tablet orally every 6 hours as needed. Dispense fifteen (15). No refills. Substitution is permissible. Diflucan 150 mg tablet: take 1 tablet orally today. No refills. Substitution is permissible. Follow-up: Follow up with your doctor in about two days even if well. Call for an appointment. Summary of care provided to patient. Understanding of the discharge instructions verbalized by patient. (Electronically signed by Rekha Dubois A.R.N.P. 12/21/2016 18:33)
--- NOTE | 2016-12-21 16:57 | ED NURSING NOTES ---
Clinical Report - Nurses [facility] [address] [place] [address] 12/21/2016 15:22 Patient: MARGA VITALE TRIAGE Triage time 1537. Acuity: LEVEL 3. Chief Complaint: ABDOMINAL PAIN and NAUSEA. --15:42 Selene Carey R.N. 15:37 12/21/16. BP: 130/78. HR: 65. RR: 18 (unlabored). O2 saturation: 97% on room air. Temp: 98.6 F (oral). Pain level now: 06/14. --15:42 Selene Carey R.N. Weight: 83.9 kg stated. Height/Length: 67 inches Per Patient. BMI: 29. --15:36 Selene Carey R.N. Medications Effient Oral. Levothyroxine Sodium Oral 100 mcg, daily. Oxybutynin Chloride ER Oral. TraZODone HCl Oral 100 mg, at bedtime. Vitamin B 12 Oral. Vitamins. --15:40 Selene Carey R.N. Medication/allergy information source: the patient. --15:42 Selene Carey R.N. Allergies Ambien. (sleep walking) Lyrica. Neurontin. --15:40 Selene Carey R.N. Topiramate. --16:33 Dona Alcantar. History Arrived by private vehicle. Historian: patient. Unaccompanied. ( pt returns with lower abdominal pain. pt states she was seen here on 12/19/16. Pt advised to go home and return if symptoms worsen. Pt states she's unable to have bowel movement.). Onset. (2 days). She has had nausea and abdominal pain. 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 PAST MEDICAL HX: Last normal menstrual period- menopause. SOCIAL HX: Never smoker. No alcohol use or drug use. ABUSE ASSESSMENT: No report of abuse. FALL RISK ASSESSMENT: Fall risk assessment completed. No fall risk identified. NUTRITIONAL RISK ASSESSMENT: The nutritional risk assessment revealed no deficiencies. FUNCTIONAL ASSESSMENT: Functional assessment: no impairments noted. LEARNING NEEDS ASSESSMENT: The learning needs assessment revealed no barriers. SKIN INTEGRITY ASSESSMENT: Skin integrity risk assessment completed. No skin integrity risk identified. --15:42 Selene Carey R.N. PROBLEMS: Abdominal Pain. TIA - Transient Ischemic Attack. Arrhythmia. Sleep Apnea. UTI - Urinary Tract Infection. Immunizations. Narcolepsy. Tetanus Status. Skin Avulsion. Cerebral Palsy. LNMP - Last Normal Menstrual Period. IBS. Fatigue. Tremor. Thyroid Disease. Palpitations. Fibromyalgia. --15:41 Selene Carey R.N. ADDITIONAL SURGERIES: Cholecystectomy. Dental Surgery. Fx right foot. Left shoulder . --15:41 Selene Carey R.N. Interventions ID band on patient. --15:42 Selene Carey R.N. PHYSICAL ASSESSMENT 16:00 LLQ pain. Ambulatory to room. GENERAL / NEURO / PSYCH: Alert. Oriented X 4. Appears in pain. HEENT: Mucous membranes are pink. RESPIRATORY: Respirations not labored. GI / : Abdomen soft and nontender. SKIN: Skin is warm and dry. --17:20 Shelbie Bowens R.N. NURSING PROGRESS NOTES Patient gowned. Head of bed elevated. Two patient identifiers checked. Call light placed in reach. Side rails up x 1. Bed placed in lowest position. Brakes of bed on. Patient ready for evaluation. --15:47 Selene Carey R.N. Patient ID band checked: patient confirmed. Clean catch urine collected with return of yellow-colored urine; sample sent to lab for urinalysis. Specimen labeled in the presence of the patient. --15:48 Selene Carey R.N. PELVIC EXAM: Pelvic exam performed by MANUFACTURING EXECUTIVE. Assisted by one nurse. Preparation: pelvic tray. Procedure: speculum and bimanual exam. Status post-procedure: she was stable. Total time of assist / procedure: (5 min). --16:12 Selene Carey R.N. 16:24 12/21/2016 Site #1 started via IV in the left antecubital space with an 20g angiocath, with aseptic technique and good blood return; one attempt. Blood drawn: rainbow set. Labeled in the presence of the patient and sent to the lab. Saline lock flushed with 10 mL saline (by Selene RESENDEZ). --16:24 Keya Kumar R.N. 16:37 12/21/2016 Zofran (Ondansetron HCl) IVP 4 mg given over 1 minute(s) via site #1. Allergies verified and confirmed 5 rights. IV patency established. IV site checked: no pain, redness, or swelling. IV flushed thoroughly pre- and post-medication administration. IVP given by RN. --16:43 Dona Alcantar 16:38 12/21/2016 Toradol IVP 30 mg given over 1 minute(s) via site #1. Allergies verified and confirmed 5 rights. IV patency established. IV site checked: no pain, redness, or swelling. IV flushed thoroughly pre- and post-medication administration. IVP given by RN. --16:43 Dona Alcantar 16:44 12/21/16. ( US at bedside.). --16:44 Dona Alcantar 17:18 12/21/2016 K-DUR (Potassium Chloride Lashae ER) PO Tablets 40 meq given. Allergies verified and confirmed 5 rights. --17:23 Shelbie Bowens R.N. DISPOSITION / DISCHARGE 17:19 12/21/2016 Site #1 removed upon discharge. Catheter intact. Manual pressure and bandage applied. --17:23 Shelbie Bowens R.N. 17:23 12/21/16. BP: 121/78. HR: 67. RR: 15. O2 saturation: 97% on room air. Temp: deferred. Emmanuel-Ocasio pain scale: 4/10. --17:24 Shelbie Bowens R.N. Condition at departure: stable. No learning barriers present. Discharge instructions provided and reviewed with the patient. Reviewed medication(s) side effects, precautions, dosing and course information. Prescription(s) given to the patient. Patient verbalized understanding. Written instructions provided in Kazakh. The patient was discharged home. She left the Emergency Department ambulatory and via private vehicle. --17:24 Shelbie Bowens R.N. Locked/Released at 12/21/2016 17:25 by Shelbie Bowens R.N.
--- NOTE | 2016-12-21 16:57 | ED ORDER SUMMARY ---
..... Patient: MARGA VITALE [facility]Sheet [facility] VisitID: [id number] [place] [address] 46y, F Registration Date/Time: 12/21/2016 ORDER SHEET Weight: 83.9 kg (stated) Allergies: Ambien, Lyrica, Neurontin, Topiramate GENERAL ORDERS: CBC w Diff Urgent (15:59 12/21/2016 HBivens A.R.N.P.) (Ack 16:09 [facility] (16:43 ASchmuck) CMP Urgent (15:59 12/21/2016 HBivens A.R.N.P.) (Ack 16:09 [facility] (16:43 ASchmuck) Pelvic Exam Setup (15:59 12/21/2016 HBivens A.R.N.P.) (16:29 ASchmuck) UA-Culture if indicated Urgent (16:12/21/2016 HBivens A.R.N.P.) (Ack 16:09 [facility]) (16:30 ASchmuck) US Pelvic Complete Urgent (16:10 12/21/2016 HBivens A.R.N.P.) (Ack 16:19 [facility]) (17:23 RCollier R.N.) MEDICATION ORDERS: K-Dur PO 40 meq (Do not crush or chew, NOW) (16:49 12/21/2016 HBivens A.R.N.P.) (Ack 17:20 Magda R.N.) (17:23 RCollier R.N.) IV FLUIDS: Toradol IV 30 mg (NOW) (16:02 12/21/2016 HBivens A.R.N.P.) (Ack 16:30 ASchmuck) (16:43 ASchmuck) Zofran IV 4 mg (NOW) (16:02 12/21/2016 HBivens A.R.N.P.) (Ack 16:30 ASchmuck) (16:43 ASchmuck) IV Saline Lock (16:02 12/21/2016 HBivens A.R.N.P.) (16:29 ASchmuck) ORDER SHEET NOTES: [Electronically signed by Shelbie Bowens R.N. (17:12/21/2016)] [Electronically signed by Rekha Dubois (18:33 12/21/2016)] [Electronically locked/signed by Shelbie Bowens R.N. (:12/21/2016)]
--- NOTE | 2016-12-21 16:57 | ED ORDER SUMMARY ---
..... Patient: MARGA VITALE OrderSheet [facility] VisitID: [id number] [place] [address] 46y, F Registration Date/Time: 12/21/2016 ORDER SHEET Weight: 83.9 kg (stated) Allergies: Ambien, Lyrica, Neurontin, Topiramate GENERAL ORDERS: CBC w Diff Urgent (15:59 12/21/2016 HBivens A.R.N.P.) (Ack 16:09 [facility]) (16:43 ASchmuck) CMP Urgent (15:59 12/21/2016 HBivens A.R.N.P.) (Ack 16:09 RKarregency [facility]) (16:43 ASchmuck) Pelvic Exam Setup (15:59 12/21/2016 HBivens A.R.N.P.) (16:29 ASchmuck) UA-Culture if indicated Urgent (16:12/21/2016 HBivens A.R.N.P.) (Ack 16:09 [facility]) (16:30 ASchmuck) US Pelvic Complete Urgent (16:10 12/21/2016 HBivens A.R.N.P.) (Ack 16:19 [facility]) (17:23 RCollier R.N.) MEDICATION ORDERS: K-Dur PO 40 meq (Do not crush or chew, NOW) (16:49 12/21/2016 HBivens A.R.N.P.) (Ack 17:20 Magda R.N.) (17:23 RCollier R.N.) IV FLUIDS: Toradol IV 30 mg (NOW) (16:02 12/21/2016 HBivens A.R.N.P.) (Ack 16:30 ASch[facility]uck) (16:43 ASchmuck) Zofran IV 4 mg (NOW) (16:02 12/21/2016 HBivens A.R.N.P.) (Ack 16:30 [facility]) (16:43 ASchmuck) IV Saline Lock (16:02 12/21/2016 HBivens A.R.N.P.) (16:29 ASchmuck) ORDER SHEET NOTES: [Electronically signed by Shelbie Bowens R.N. (17:12/21/2016)] [Electronically signed by Rekha Dubois (18:33 12/21/2016)] [Electronically locked/signed by Shelbie Bowens R.N. (:12/21/2016)]
--- NOTE | 2016-12-21 17:08 | DIAGNOSTIC IMAGING REPORT ---
PROCEDURE: US COMPLETE PELVIC INDICATION: PELVIC PAIN TECHNIQUE: Transabdominal and endovaginal aguayo scale and color Doppler sonographic images of the female pelvis were obtained. COMPARISON: None. FINDINGS: TRANSABDOMINAL SCANS: Anteverted uterus measures 8.7 x 5.1 x 4.2 cm Normal contour and echotexture. No adnexal mass. The visible portion of the urinary bladder is normal. No significant free pelvic fluid. The ovaries were not visualized. No pathology was seen in the area of pain. IMPRESSION: 1. Negative pelvic ultrasound. No pathology in the area of pain.
--- NOTE | 2016-12-21 18:33 | ED DISCHARGE INSTRUCTIONS ---
Patient: MARGA VITALE General Instructions [facility] VisitID: [id number] [place] [address] 46y, F Registration Date/Time: 12/21/2016 Acute urinary tract infection. No cystitis, pyelonephritis or hematuria. Not associated with indwelling catheter. Acute left lower quadrant abdominal pain of undetermined cause. INSTRUCTIONS Warnings: GENERAL WARNINGS: Return or contact your physician immediately if your condition worsens or changes unexpectedly, if not improving as expected, or if other problems arise. SPECIFICALLY, return if you develop fever, the inability to keep fluids down, blood in vomitus, blood in diarrhea, fainting or lightheadedness. Prescription Medications: Zofran 4 mg: Take 1 orally every six hours as needed for nausea/vomiting. Dispense ten (10). No refills. Substitution is permissible. Macrobid 100 mg: Take 1 capsule orally every 12 hours for 7 days. No refills. Substitution is permissible. Toradol 10 mg tablets: Take 1 tablet orally every 6 hours as needed. Dispense fifteen (15). No refills. Substitution is permissible. Diflucan 150 mg tablet: take 1 tablet orally today. No refills. Substitution is permissible. Follow-up: Follow up with your doctor in about two days even if well. Call for an appointment. Summary of care provided to patient. Understanding of the discharge instructions verbalized by patient. ADDITIONAL INFORMATION Abdominal Pain, Unknown Cause (Female) The exact cause of your abdominal (stomach) pain is not certain. This does not mean that this is something to worry about, or the right tests were not done. Everyone likes to know the exact cause of the problem, but sometimes with abdominal pain, there is no clear-cut cause, and this could be a good thing. The good news is that your symptoms can be treated, and you will feel better. Your condition does not seem serious now; however, sometimes the signs of a serious problem may take more time to appear. For this reason,it is important for you to watch for any new symptoms, problems,or worsening of your condition. Over the next few days, the abdominal pain may come and go, or be continuous. Other common symptoms can include nausea and vomiting. Sometimes it can be difficult to tell if you feel nauseous, you may just feel bad and not associate that feeling with nausea. Constipation, diarrhea, and a fever may go along with the pain. The pain may continue even if treated correctly over the following days. Depending on how things go, sometimes the cause can become clear and may require further or different treatment. Additional evaluations, medications, or tests may be needed. Home care Your health care provider may prescribe medications for pain, symptoms, or an infection. Follow the health care provider's instructions for taking these medications. General care Rest until your next exam. No strenuous activities. Try to find positions that ease discomfort. A small pillow placed on the abdomen may help relieve pain. Something warm on your abdomen (such as a heating pad) may help, but be careful not to burn yourself. Diet Do not force yourself to eat, especially if having cramps, vomiting, or diarrhea. Water is important so you do not get dehydrated. Soup may also be good. Sports drinks may also help, especially if they are not too acidic. Make sure you don't drink sugary drinks as this can make things worse. Take liquids in small amounts. Do not guzzle them. Caffeine sometimes makes the pain and cramping worse. Avoid dairy products if you have vomiting or diarrhea. Don't eat large amounts at a time. Wait a few minutes between bites. Eat a diet low in fiber (called a low-residue diet). Foods allowed include refined breads, white rice, fruit and vegetable juices without pulp, tender meats. These foods will pass more easily through the intestine. Avoid whole-grain foods, whole fruits and vegetables, meats, seeds and nuts, fried or fatty foods, dairy, alcohol and spicy foods until your symptoms go away. Follow-up care Follow up with your health care provider as instructed, or if your pain does not begin to improve in the next 24 hours. When to seek medical care Seek prompt medical care if any of the following occur: Pain gets worse or moves to the right lower abdomen New or worsening vomiting or diarrhea Swelling of the abdomen Unable to pass stool for more than three days Fever of 100.4F (38C) or higher, or as directed by your healthcare provider. Blood in vomit or bowel movements (dark red or black color) Jaundice (yellow color of eyes and skin) Weakness, dizziness Chest, arm, back, neck or jaw pain Unexpected vaginal bleeding or missed period Call 911 Call emergency services if any of the following occur: Trouble breathing Confusion Fainting or loss of consciousness Rapid heart rate Seizure Abdominal Pain,Possible Appendicitis [Repeat Exam, Female] Based on your visit today, the exact cause of your abdominal (stomach) pain is not certain. However, you do have some of the early signs of APPENDICITIS. Early in an appendix infection the symptoms can be similar to a simple "stomach ache" or "stomach flu". Therefore, the diagnosis can be hard to make. Since an appendix infection is a serious condition, it is important to know if this is the cause of your symptoms. WAITING for more time to pass and repeating the exam is the best way to find out whether you have appendicitis. Within the next 12-24 hours the cause of your stomach pain should become clear. It is important for you to watch for any new symptoms or worsening of your condition. (See below). Home Care: Rest until your next exam. No strenuous activities. Eat a diet low in fiber (called a low-residue diet). Foods allowed include refined breads, white rice, fruit and vegetable juices without pulp, tender meats. These foods will pass more easily through the intestine. Avoid whole-grain foods, whole fruits and vegetables, meats, seeds and nuts, fried or fatty foods, dairy, alcohol and spicy foods until your symptoms go away. In some cases, you may be asked not to eat or drink anything until you are re-examined. Return for another exam exactly as directed. Follow Up with your doctor or this facility as directed. Get Prompt Medical Attention if any of the following occur: Pain gets worse or moves to the right lower abdomen New or worsening vomiting or diarrhea Swelling of the abdomen Unable to pass stool for more than three days Fever of 100.4F (38C) or higher, or as directed by your healthcare provider Blood in vomit or bowel movements (dark red or black color) Weakness, dizziness or fainting Unexpected vaginal bleeding Bladder Infection,Female (Adult) A bladder infection ("cystitis" or "UTI") usually causes a constant urge to urinate and a burning when passing urine. Urine may be cloudy, smelly or dark. There may be pain in the lower abdomen. A bladder infection occurs when bacteria from the vaginal area enter the bladder opening (urethra). This can occur from sexual intercourse, wearing tight clothing, dehydration and other factors. Home Care: Drink lots of fluids (at least 6-8 glasses a day, unless you must restrict fluids for other medical reasons). This will force the medicine into your urinary system and flush the bacteria out of your body. Avoid sexual intercourse until your symptoms are gone. Avoid caffeine, alcohol and spicy foods. These can irritate the bladder. A bladder infection is treated with antibiotics. You may also be given Pyridium (generic = phenazopyridine) to reduce the burning sensation. This medicine will cause your urine to become a bright orange color. The orange urine may stain clothing. You may wear a pad or panty-liner to protect clothing. Preventing Future Infections: Always wipe from front to back after a bowel movement. Keep the genital area clean and dry. Drink plenty of fluids each day to avoid dehydration. Both sexual partners should wash before intercourse. Urinate right after intercourse to flush out the bladder. Wear cotton underwear and cotton-lined panty hose; avoid tight-fitting pants. If you are on control pills and are having frequent bladder infections, discuss with your doctor. Follow Up: Return to this facility or see your doctor if ALL symptoms are not gone after three days of treatment. Get Prompt Medical Attention if any of the following occur: Fever of 100.4F (38C) or higher, or as directed by your healthcare provider No improvement by the third day of treatment Increasing back or abdominal pain Repeated vomiting; unable to keep medicine down Weakness, dizziness or fainting Vaginal discharge Pain, redness or swelling in the labia (outer vaginal area) Ondansetron Oral disintegrating tablet What is this medicine? ONDANSETRON (on VIV se junior) is used to treat nausea and vomiting caused by chemotherapy. It is also used to prevent or treat nausea and vomiting after surgery. How should I use this medicine? These tablets are made to dissolve in the mouth. Do not try to push the tablet through the foil backing. With dry hands, peel away the foil backing and gently remove the tablet. Place the tablet in the mouth and allow it to dissolve, then swallow. While you may take these tablets with water, it is not necessary to do so. Talk to your electrician yard regarding the use of this medicine in children. Special care may be needed. What side effects may I notice from receiving this medicine? Side effects that you should report to your doctor or health insurance healthcare consultant as soon as possible: allergic reactions like skin rash, itching or hives, swelling of the face, lips, or tongue breathing problems dizziness fast or irregular heartbeat feeling faint or lightheaded, falls fever and chills swelling of the hands and feet tightness in the chest Side effects that usually do not require medical attention (report to your doctor or health insurance healthcare consultant if they continue or are bothersome): constipation or diarrhea headache What may interact with this medicine? Do not take this medicine with any of the following medications: -apomorphine -cisapride -dofetilide -dronedarone -pimozide -thioridazine -ziprasidone This medicine may also interact with the following medications: -carbamazepine -phenytoin -rifampicin -tramadol -other medicines that prolong the QT interval (cause an abnormal heart rhythm) What if I miss a dose? If you miss a dose, take it as soon as you can. If it is almost time for your next dose, take only that dose. Do not take double or extra doses. Where should I keep my medicine? Keep out of the reach of children. Store between 2 and 30 degrees C (36 and 86 degrees F). Throw away any unused medicine after the expiration date. What should I tell my health care provider before I take this medicine? They need to know if you have any of these conditions: heart disease history of irregular heartbeat liver disease low levels of magnesium or potassium in the blood an unusual or allergic reaction to ondansetron, granisetron, other medicines, foods, dyes, or preservatives or trying to get breast-feeding What should I watch for while using this medicine? Check with your doctor or health insurance healthcare consultant as soon as you can if you have any sign of an allergic reaction. Nitrofurantoin, Nitrofurantoin, Macrocrystalline Oral capsule What is this medicine? NITROFURANTOIN (kentrell patton) is an antibiotic. It is used to treat urinary tract infections. How should I use this medicine? Take this medicine by mouth with a glass of water. Follow the directions on the prescription label. Take this medicine with food or milk. Take your doses at regular intervals. Do not take your medicine more often than directed. Do not stop taking except on your doctor's advice. Talk to your electrician yard regarding the use of this medicine in children. While this drug may be prescribed for selected conditions, precautions do apply. What side effects may I notice from receiving this medicine? Side effects that you should report to your doctor or health insurance healthcare consultant as soon as possible: allergic reactions like skin rash or hives, swelling of the face, lips, or tongue chest pain cough difficulty breathing dizziness, drowsiness fever or infection joint aches or pains pale or blue-tinted skin redness, blistering, peeling or loosening of the skin, including inside the mouth tingling, burning, pain, or numbness in hands or feet unusual bleeding or bruising unusually weak or tired yellowing of eyes or skin Side effects that usually do not require medical attention (report to your doctor or health insurance healthcare consultant if they continue or are bothersome): dark urine diarrhea headache loss of appetite nausea or vomiting temporary hair loss What may interact with this medicine? antacids containing magnesium trisilicate probenecid quinolone antibiotics like ciprofloxacin, lomefloxacin, norfloxacin and ofloxacin sulfinpyrazone What if I miss a dose? If you miss a dose, take it as soon as you can. If it is almost time for your next dose, take only that dose. Do not take double or extra doses. Where should I keep my medicine? Keep out of the reach of children. Store at room temperature between 15 and 30 degrees C (59 and 86 degrees F). Protect from light. Throw away any unused medicine after the expiration date. What should I tell my health care provider before I take this medicine? They need to know if you have any of these conditions: anemia diabetes [id number] dehydrogenase deficiency kidney disease liver disease lung disease other chronic illness an unusual or allergic reaction to nitrofurantoin, other antibiotics, other medicines, foods, dyes or preservatives or trying to get breast-feeding What should I watch for while using this medicine? Tell your doctor or health insurance healthcare consultant if your symptoms do not improve or if you get new symptoms. Drink several glasses of water a day. If you are taking this medicine for a long time, visit your doctor for regular checks on your progress. If you are diabetic, you may get a false positive result for sugar in your urine with certain brands of urine tests. Check with your doctor. Ketorolac Tromethamine Oral tablet What is this medicine? KETOROLAC (karl toe ROLE ak) is a non-steroidal anti-inflammatory drug (NSAID). It is used for a short while to treat moderate to severe pain, including pain after surgery. It should not be used for more than 5 days. How should I use this medicine? Take this medicine by mouth with a full glass of water. Follow the directions on the prescription label. Take your medicine at regular intervals. Do not take your medicine more often than directed. Do not take more than the recommended dose. A special MedGuide will be given to you by the pharmacist with each prescription and refill. Be sure to read this information carefully each time. Talk to your electrician yard regarding the use of this medicine in children. While this drug may be prescribed for children as young as 16 years of age for selected conditions, precautions do apply. Patients over 65 years old may have a stronger reaction and need a smaller dose. What side effects may I notice from receiving this medicine? Side effects that you should report to your doctor or health insurance healthcare consultant as soon as possible: allergic reactions like skin rash, itching or hives, swelling of the face, lips, or tongue black or tarry stools breathing problems changes in vision chest pain high blood pressure nausea or vomiting redness, blistering, peeling or loosening of the skin, including inside the mouth severe abdominal pain slurred speech or weakness on one side of the body unexplained weight gain or swelling unusual bleeding or bruising unusually weak or tired yellowing of eyes or skin Side effects that usually do not require medical attention (report to your doctor or health insurance healthcare consultant if they continue or are bothersome): diarrhea dizziness headache heartburn What may interact with this medicine? Do not take this medicine with any of the following medications: aspirin and aspirin-like medicines cidofovir methotrexate NSAIDs, medicines for pain and inflammation, like ibuprofen or naproxen pemetrexed probenecid This medicine may also interact with the following medications: alcohol alendronate alprazolam carbamazepine cyclosporine diuretics flavocoxid fluoxetine ginkgo lithium medicines for high blood pressure like enalapril medicines that affect platelets like pentoxifylline medicines that treat or prevent blood clots like heparin, warfarin muscle relaxants phenytoin steroid medicines like prednisone or cortisone thiothixene What if I miss a dose? If you miss a dose, take it as soon as you can. If it is almost time for your next dose, take only that dose. Do not take double or extra doses. Where should I keep my medicine? Keep out of the reach of children. Store at room temperature between 20 and 25 degrees C (68 and 77 degrees F). Throw away any unused medicine after the expiration date. What should I tell my health care provider before I take this medicine? They need to know if you have any of these conditions: asthma bleeding problems like hemophilia cigarette smoker drink more than 3 alcohol containing drinks a day heart disease or circulation problems such as heart failure or leg edema (fluid retention) high blood pressure kidney disease liver disease stomach bleeding or ulcers an unusual or allergic reaction to ketorolac, aspirin, other NSAIDs, other medicines, foods, dyes, or preservatives or trying to get breast-feeding What should I watch for while using this medicine? Tell your doctor or health insurance healthcare consultant if your pain does not get better. Talk to your doctor before taking another medicine for pain. Do not treat yourself. This medicine does not prevent heart attack or stroke. In fact, this medicine may increase the chance of a heart attack or stroke. The chance may increase with longer use of this medicine and in people who have heart disease. If you take aspirin to prevent heart attack or stroke, talk with your doctor or health insurance healthcare consultant. Do not take medicines such as ibuprofen and naproxen with this medicine. Side effects such as stomach upset, nausea, or ulcers may be more likely to occur. Many medicines available without a prescription should not be taken with this medicine. This medicine can cause ulcers and bleeding in the stomach and intestines at any time during treatment. Do not smoke cigarettes or drink alcohol. These increase irritation to your stomach and can make it more susceptible to damage from this medicine. Ulcers and bleeding can happen without warning symptoms and can cause . You may get drowsy or dizzy. Do not drive, use machinery, or do anything that needs mental alertness until you know how this medicine affects you. Do not stand or sit up quickly, especially if you are an older patient. This reduces the risk of dizzy or fainting spells. This medicine can cause you to bleed more easily. Try to avoid damage to your teeth and gums when you brush or floss your teeth. Fluconazole Oral tablet What is this medicine? FLUCONAZOLE (floo BIB na zole) is an antifungal medicine. It is used to treat certain kinds of fungal or yeast infections. How should I use this medicine? Take this medicine by mouth. Follow the directions on the prescription label. Do not take your medicine more often than directed. Talk to your electrician yard regarding the use of this medicine in children. Special care may be needed. This medicine has been used in children as young as 6 months of age. What side effects may I notice from receiving this medicine? Side effects that you should report to your doctor or health insurance healthcare consultant as soon as possible: allergic reactions like skin rash or itching, hives, swelling of the lips, mouth, tongue, or throat dark urine feeling dizzy or faint irregular heartbeat or chest pain redness, blistering, peeling or loosening of the skin, including inside the mouth trouble breathing unusual bruising or bleeding vomiting yellowing of the eyes or skin Side effects that usually do not require medical attention (report to your doctor or health insurance healthcare consultant if they continue or are bothersome): changes in how food tastes diarrhea headache stomach upset or nausea What may interact with this medicine? Do not take this medicine with any of the following medications: cisapride pimozide red yeast rice This medicine may also interact with the following medications: control pills cyclosporine diuretics like hydrochlorothiazide medicines for diabetes that are taken by mouth medicines for high cholesterol like atorvastatin, lovastatin or simvastatin phenytoin ramelteon rifabutin rifampin some medicines for anxiety or sleep tacrolimus terfenadine theophylline tofacitinib warfarin What if I miss a dose? If you miss a dose, take it as soon as you can. If it is almost time for your next dose, take only that dose. Do not take double or extra doses. Where should I keep my medicine? Keep out of the reach of children. Store at room temperature below 30 degrees C (86 degrees F). Throw away any medicine after the expiration date. What should I tell my health care provider before I take this medicine? They need to know if you have any of these conditions: electrolyte abnormalities history of irregular heart beat kidney disease an unusual or allergic reaction to fluconazole, other azole antifungals, medicines, foods, dyes, or preservatives or trying to get breast-feeding What should I watch for while using this medicine? Visit your doctor or health insurance healthcare consultant for regular checkups. If you are taking this medicine for a long time you may need blood work. Tell your doctor if your symptoms do not improve. Some fungal infections need many weeks or months of treatment to cure. Alcohol can increase possible damage to your liver. Avoid alcoholic drinks. If you have a vaginal infection, do not have sex until you have finished your treatment. You can wear a sanitary napkin. Do not use tampons. Wear freshly washed cotton, not synthetic, panties. You have been given the following additional information: Abdominal Pain, Unknown Cause, (Female) Abdominal Pain, Possible Appendicitis (Female) Bladder Infection, Female (Adult) Ondansetron Oral disintegrating tablet Nitrofurantoin, Nitrofurantoin, Macrocrystalline Oral capsule Ketorolac Tromethamine Oral tablet Fluconazole Oral tablet (Electronically signed by Rekha Dubois A.R.N.P. 12/21/2016 18:33)
--- NOTE | 2016-12-21 18:34 | ED MED RECONCILIATION SUMMARY ---
Patient: MARGA VITALE Medication Reconciliation Report [facility] VisitID: [id number] [address] [place] [address] 46y, F Registration Date/Time: 12/21/2016 Weight: 83.9 kg Height/Length: 67 in. BMI: 29.0 ALLERGIES: Ambien, Lyrica, Neurontin, Topiramate The patient's Home Medications are listed below: THE FOLLOWING MEDICATIONS NEED TO BE RECONCILED: Effient Oral Levothyroxine Sodium Oral 100 mcg, daily Oxybutynin Chloride ER Oral TraZODone HCl Oral 100 mg, at bedtime Vitamin B 12 Oral Vitamins The source(s) of the original Home Medication information: patient The following Medications were given to the patient in the Emergency Department: Toradol [IVP] IVP 30 mg, administered: 12/21/2016 4:38:00 PM Zofran [IVP] IVP 4 mg, administered: 12/21/2016 4:37:00 PM K-DUR [PO] PO 40 meq, administered: 12/21/2016 5:18:00 PM The following Medications were prescribed to the patient: Zofran 4 mg: Take 1 orally every six hours as needed for nausea/vomiting. Dispense ten (10). No refills. Substitution is permissible. -- Rekha Dubois A.R.N.P. Macrobid 100 mg: Take 1 capsule orally every 12 hours for 7 days. No refills. Substitution is permissible. -- Rekha Dubois A.R.N.P. Toradol 10 mg tablets: Take 1 tablet orally every 6 hours as needed. Dispense fifteen (15). No refills. Substitution is permissible. -- Rekha Dubois A.R.N.P. Diflucan 150 mg tablet: take 1 tablet orally today. No refills. Substitution is permissible. -- Rekha Dubois A.R.N.P.
--- NOTE | 2016-12-21 18:34 | ED MAR SUMMARY ---
..... Medication Administration Record [facility] [address] [place] [address] Patient: MARGA VITALE Visit ID: [id number] 46y, F Weight: 83.9 kg Height/Length: 67 in BMI: 29 ALLERGIES: Ambien, Lyrica, Neurontin, Topiramate Given 16:37 12/21/2016 Dona Alcantar, Medication Administered: ZOFRAN [IVP] (ONDANSETRON HCL), Dose: 4 mg IVP over 1 minute(s), Site: #1 left AC. Medication Ordered: Zofran IV 4 mg (NOW). Given 16:38 12/21/2016 Dona Alcantar, Medication Administered: TORADOL [IVP], Dose: 30 mg IVP over 1 minute(s), Site: #1 left AC. Medication Ordered: Toradol IV 30 mg (NOW). Given 17:18 12/21/2016 Shelbie Bowens, RLorenzoN. Medication Administered: K-DUR [PO] (POTASSIUM CHLORIDE REUBEN ER), Dose: 40 meq Tablets PO. Medication Ordered: K-Dur PO 40 meq (Do not crush or chew, NOW).
--- NOTE | 2016-12-21 18:34 | ED MAR SUMMARY ---
..... Medication Administration Record [facility] [address] [place] [address] Patient: MARGA VITALE Visit ID: [id number] 46y, F Weight: 83.9 kg Height/Length: 67 in BMI: 29 ALLERGIES: Ambien, Lyrica, Neurontin, Topiramate Given 16:37 12/21/2016 Dona Alcantar, Medication Administered: ZOFRAN [IVP] (ONDANSETRON HCL), Dose: 4 mg IVP over 1 minute(s), Site: #1 left AC. Medication Ordered: Zofran IV 4 mg (NOW). Given 16:38 12/21/2016 Dona Alcantar, Medication Administered: TORADOL [IVP], Dose: 30 mg IVP over 1 minute(s), Site: #1 left AC. Medication Ordered: Toradol IV 30 mg (NOW). Given 17:18 12/21/2016 Shelbie Bowens, RLorenzoN. Medication Administered: K-DUR [PO] (POTASSIUM CHLORIDE REUBEN ER), Dose: 40 meq Tablets PO. Medication Ordered: K-Dur PO 40 meq (Do not crush or chew, NOW).
--- NOTE | 2016-12-21 18:34 | ED MED RECONCILIATION SUMMARY ---
Patient: MARGA VITALE Medication Reconciliation Report [facility] VisitID: [id number] [address] [place] [place] [address] 46y, F Registration Date/Time: 12/21/2016 Weight: 83.9 kg Height/Length: 67 in. BMI: 29.0 ALLERGIES: Ambien, Lyrica, Neurontin, Topiramate The patient's Home Medications are listed below: THE FOLLOWING MEDICATIONS NEED TO BE RECONCILED: Effient Oral Levothyroxine Sodium Oral 100 mcg, daily Oxybutynin Chloride ER Oral TraZODone HCl Oral 100 mg, at bedtime Vitamin B 12 Oral Vitamins The source(s) of the original Home Medication information: patient The following Medications were given to the patient in the Emergency Department: Toradol [IVP] IVP 30 mg, administered: 12/21/2016 4:38:00 PM Zofran [IVP] IVP 4 mg, administered: 12/21/2016 4:37:00 PM K-DUR [PO] PO 40 meq, administered: 12/21/2016 5:18:00 PM The following Medications were prescribed to the patient: Zofran 4 mg: Take 1 orally every six hours as needed for nausea/vomiting. Dispense ten (10). No refills. Substitution is permissible. -- Rekha Dubois A.R.N.P. Macrobid 100 mg: Take 1 capsule orally every 12 hours for 7 days. No refills. Substitution is permissible. -- Rekha Dubois A.R.N.P. Toradol 10 mg tablets: Take 1 tablet orally every 6 hours as needed. Dispense fifteen (15). No refills. Substitution is permissible. -- Rekha Dubois A.R.N.P. Diflucan 150 mg tablet: take 1 tablet orally today. No refills. Substitution is permissible. -- Rekha Dubois A.R.N.P.
== END 2016-12-21 17:23 | disposition home or self-care (01) ==
LOC: ED SRH 15:22
DX: N39.0 Urinary tract infection, site not specified (principal); R10.32 Left lower quadrant pain; Z88.5 Allergy status to narcotic agent; Z88.8 Allergy status to other drugs, medicaments and biological substances; Z79.899 Other long term (current) drug therapy
CPT/HCPCS: 90004; 90100; 90469; 95059

== ENCOUNTER 2017-03-13 15:17 | Outpatient (CLI) | payer OTHER ==
--- NOTE | 2017-03-13 15:45 | DIAGNOSTIC IMAGING REPORT ---
PROCEDURE: XR SACRUM AND COCCYX INDICATION: TAIL BONE PAIN TECHNIQUE: Three views. COMPARISON: None. FINDINGS: Osseous structures are normal. No evidence of fracture. IMPRESSION: 1. Normal sacrum and coccyx.
== END 2017-03-13 23:00 ==
LOC: XR SRH 15:17
DX: M53.3 Sacrococcygeal disorders, not elsewhere classified (principal)

== ENCOUNTER 2017-05-23 14:56 | Outpatient (CLI) | payer OTHER ==
--- NOTE | 2017-05-23 17:49 | DIAGNOSTIC IMAGING REPORT ---
PROCEDURE: US COMPLETE PELVIC W/TRANSVAG INDICATION: PELVIC PAIN TECHNIQUE: Transabdominal and endovaginal aguayo scale and color Doppler sonographic images of the female pelvis were obtained. COMPARISON: Abdominal CT 12/19/2016 FINDINGS: TRANSABDOMINAL SCANS: The uterus is of normal size 4.3 x 2.7 x 3.4 cm Kidneys are normal. TRANSVAGINAL SCANS: The uterus is anteverted. Myometrium contains a 9 mm of fibroid posteriorly and on the right. The endometrium measures 2.7 mm. Right ovary is normal measuring 1.6 x 1.2 x 0.9 cm. Good blood flow is noted. The left ovary is atrophic IMPRESSION: 1. 9 mm uterine fibroid. Atrophic left ovary.
== END 2017-05-23 23:00 ==
LOC: US SRH 14:56
DX: D25.9 Leiomyoma of uterus, unspecified (principal)